=== PATIENT | male | born 1950 | race Caucasian/White ===

== ENCOUNTER → 2021-01-03 11:32 | Outpatient (BNVA) | payer BC, SELFPAY | PROVIDERS: PCP Internal Medicine; Visit Provider Urology | DX: R35.1 Nocturia (principal); N40.0 Benign prostatic hyperplasia without lower urinary tract symptoms | CPT/HCPCS: 81002 ==

== ENCOUNTER → 2021-01-31 11:05 | Outpatient (BNVA) | payer BC, SELFPAY | PROVIDERS: PCP Internal Medicine; Visit Provider Urology ==

== ENCOUNTER → 2021-05-07 09:48 | Outpatient (BNVA) | payer BC, SELFPAY | PROVIDERS: PCP Internal Medicine; Visit Provider Urology | DX: N40.0 Benign prostatic hyperplasia without lower urinary tract symptoms (principal); R35.1 Nocturia | CPT/HCPCS: 52000 ==

== ENCOUNTER 2021-07-08 08:47 | Day surgery (SDC) | payer BC, SELFPAY ==
[2021-07-02 14:43] VITALS: BMI 39.4
[2021-07-03 12:08] VITALS: BMI 39.4
--- NOTE | 2021-07-05 12:05 | P.CONAN_ITS ---
Documented by User: Rebecca Chaney NP 07/05/21 12:09 HPI - Anesthesia Eval Consult details Narrative: 71yo M for Laser Ablation Prostate w/Green Light Probable YOSI per stop-bang PMFSH Active Problems Active Problems: All Active Problems (Updated 07/03/21 @ 12:07 by Cayla Mcgregor, MARY) Nocturia (Acute) BPH (benign prostatic hyperplasia) (Acute) Past Medical History Medical History (Updated 07/03/21 @ 12:07 by Cayla Mcgregor, MARY) Anxiety and depression Arthritis BPH (benign prostatic hyperplasia) Currently works full-time Depression Nocturia Sleep concern SOB (shortness of breath) Teeth missing Type I diabetes mellitus Urgency-frequency syndrome Surgical History Surgical History (Updated 07/03/21 @ 11:36 by Cayla Mcgregor RN) Hx of colonoscopy Social History Social History (Updated 07/03/21 @ 12:12 by Cayla Mcgregor RN) Household Members Other:: mother 90 yrs old and her care-civilian 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 Are you a primary pharmacy customer care specialist to a significant other at home: Yes Do you presently have visiting nurse or other home services: Yes (mother's care-civilian technician) Alcohol intake: current Alcohol intake frequency: a few times a week Alcohol type: beer Patient Tobacco Use Status: Never used Tobacco Use of substances other than those prescribed or required for medical reasons: No Are you DNR?: No Advance Directives: No Advance Directives Information Provided: No Advance Directives on File: No Meds Allergies Allergy/AdvReac Type Severity Reaction Status Date / Time ibuprofen [IBUPROFEN] Allergy Intermediate kidney Verified 07/03/21 11:28 problems lisinopril [LISINOPRIL] Allergy Intermediate kidney Verified 07/03/21 11:28 problems Sulfa (Sulfonamide Allergy Unknown Unknown Verified 07/03/21 11:28 Antibiotics) Home Medications Medication Instructions Recorded Confirmed Last Taken Type atorvastatin 10 mg tablet 10 mg PO DAILY 01/03/21 07/03/21 Unknown History blood sugar diagnostic #10 ea 01/03/21 01/31/21 Unknown History buspirone 15 mg tablet 30 mg PO BID 01/03/21 07/03/21 Unknown History fluoxetine 40 mg capsule 120 mg PO DAILY 01/03/21 07/03/21 Unknown History glipizide 5 mg tablet, extended 10 mg PO DAILY 01/03/21 07/03/21 Unknown History release 24 hr ketoconazole 2 % topical cream appl TOPICAL DAILY 01/03/21 01/31/21 Unknown History losartan 100 1 tab PO DAILY 01/03/21 07/03/21 Unknown History mg-hydrochlorothiazide 25 mg tablet metformin 500 mg tablet,extended 2,000 mg PO DAILY@0730 01/03/21 07/03/21 Unknown History release 24 hr pen needle, diabetic 32 gauge x #50 ea 01/03/21 01/31/21 Unknown History spironolactone 25 mg tablet 25 mg PO DAILY 01/03/21 07/03/21 Unknown History alcohol swabs 0 pad TOPICAL 05/07/21 Unknown History insulin degludec 100 unit/mL (3 38 unit SUBCUT QAM 07/03/21 07/03/21 Unknown History mL) subcutaneous pen (Tresiba FlexTouch U-100 insulin) liraglutide 0.6 mg/0.1 mL (18 mg/3 1.8 mg SUBCUT DAILY 07/03/21 07/03/21 Unknown History mL) subcutaneous pen injector (Victoza 3-Can) Exam Exam Date and Time: July 05, 2021 1205 Height,Weight and Vital Signs: Height 5 ft 11 in Weight 128.367 kg Pertinent Lab Results Pertinent Lab Results: 06/2021 Na 134 (L) K 4.9 Cl 101 CO2 25 BUN 28 (H) Creat 1.41 (H) WBC 8 HGB 13.1 (L) HCT 40.2 (L) PLT 210 Narrative Narrative: EKG 06/2021 NSR @ 86 Assessment and Plan Assessment Anesthesia Assessment: Chart Reviewed Documented by User: Lucrecia Whitley MD 07/08/21 13:13 [facility] Past Medical History Medical History (Updated 07/03/21 @ 12:07 by Cayla Mcgregor RN) Anxiety and depression Arthritis BPH (benign prostatic hyperplasia) Currently works full-time Depression Nocturia Sleep concern SOB (shortness of breath) Teeth missing Type I diabetes mellitus Urgency-frequency syndrome Surgical History Surgical History (Updated 07/03/21 @ 11:36 by Cayla Mcgregor, MARY) Hx of colonoscopy Social History Social History (Updated 07/03/21 @ 12:12 by Cayla Mcgregor, RN) Household Members Other:: mother 90 yrs old and her care-civilian technician Are you a primary pharmacy customer care specialist to a significant other at home: Yes Do you presently have visiting nurse or other home services: Yes (mother's care-civilian technician) Alcohol intake: current Alcohol intake frequency: a few times a week Alcohol type: beer Patient Tobacco Use Status: Never used Tobacco Use of substances other than those prescribed or required for medical reasons: No Are you DNR?: No Advance Directives: No Advance Directives Information Provided: No Advance Directives on File: No Meds Allergies Allergy/AdvReac Type Severity Reaction Status Date / Time ibuprofen [IBUPROFEN] Allergy Intermediate kidney Verified 07/03/21 11:28 problems lisinopril [LISINOPRIL] Allergy Intermediate kidney Verified 07/03/21 11:28 problems Sulfa (Sulfonamide Allergy Unknown Unknown Verified 07/03/21 11:28 Antibiotics) Home Medications Medication Instructions Recorded Confirmed Last Taken Type atorvastatin 10 mg tablet 10 mg PO DAILY 01/03/21 07/03/21 Unknown History blood sugar diagnostic #10 ea 01/03/21 01/31/21 Unknown History buspirone 15 mg tablet 30 mg PO BID 01/03/21 07/03/21 Unknown History fluoxetine 40 mg capsule 120 mg PO DAILY 01/03/21 07/03/21 Unknown History glipizide 5 mg tablet, extended 10 mg PO DAILY 01/03/21 07/03/21 Unknown History release 24 hr ketoconazole 2 % topical cream appl TOPICAL DAILY 01/03/21 01/31/21 Unknown History losartan 100 1 tab PO DAILY 01/03/21 07/03/21 Unknown History mg-hydrochlorothiazide 25 mg tablet metformin 500 mg tablet,extended 2,000 mg PO DAILY@0730 01/03/21 07/03/21 Unknown History release 24 hr pen needle, diabetic 32 gauge x #50 ea 01/03/21 01/31/21 Unknown History spironolactone 25 mg tablet 25 mg PO DAILY 01/03/21 07/03/21 Unknown History alcohol swabs 0 pad TOPICAL 05/07/21 Unknown History insulin degludec 100 unit/mL (3 38 unit SUBCUT QAM 07/03/21 07/03/21 Unknown History mL) subcutaneous pen (Tresiba FlexTouch U-100 insulin) liraglutide 0.6 mg/0.1 mL (18 mg/3 1.8 mg SUBCUT DAILY 07/03/21 07/03/21 Unknown History mL) subcutaneous pen injector (Victoza 3-Can) Exam Airway Mallampati Class: III TM Dist: >3cm Loose/Missing/Broken Teeth: Yes, Upper and Lower
[2021-07-08 12:45] VITALS: BP 169/85; PULSE 85; RESP 16; TEMP 36.2; O2SAT 97
[2021-07-08] MEDS: Lactated Ringers 1,000 ML 100 ML IVCONT (13:03)
[2021-07-08] MEDS: levoFLOXacin/D5W 500 MG/100 ML PIGGYBACK 100 MG IV (13:06)
[2021-07-08 13:11] LABS: Glucose, Whole Blood 144 mg/dL (60-115)
--- NOTE | 2021-07-08 13:19 | MHC.SHP ---
Pre-Procedural Eval Section A Date of Service: 07/08/21 Section B Chief Complaint: prostatic hyperplasia Details of Present Illness: BPH here for GreenLight laser prostate Relevant Social History: Tobacco Use Present Medications: see Short Stay Collaborative assessment Medical History: No relevant PMH History of Previous Operations: No relevant previous surgery Allergies: Allergies Allergy/AdvReac Type Severity Reaction Status Date / Time ibuprofen [IBUPROFEN] Allergy Intermediate kidney Verified 07/03/21 11:28 problems lisinopril [LISINOPRIL] Allergy Intermediate kidney Verified 07/03/21 11:28 problems Sulfa (Sulfonamide Allergy Unknown Unknown Verified 07/03/21 11:28 Antibiotics) Review of Systems Sugical H&P ROS: Negative: Constitution, Cardiovascular, Respiratory, Neurological, Psychiatric, Hem-Onc, Allergic/Immunologic, Gastrointestinal, Genitourinary, Musculoskeletal, Integumentary, Endocrine and Eyes/Ears/Nose/Throat Exam Surgical H&P Exam: Normal: HEENT, Normal: Heart, Normal: Lungs, Normal: Extremities, Normal: Abdomen, Normal: Skin and Normal: Neurological Plan Diagnosis/Plan: Unchanged (GreenLight laser prostate) I have reviewed the history and physical and performed a pertinent physical examination on my patient. No changes have occurred unless specified.
--- NOTE | 2021-07-08 14:24 | W.PM.OPN ---
Operative Note Operative Note Date of Service: 07/08/21 Narrative: PreOperative Diagnosis: Bladder outlet obstruction Post Operative Diagnosis: Bladder outlet obstruction Procedure: GreenLight laser enucleation of the prostate Surgeon: Dr Aly Painter Anesthesia: General Indications for procedure: History of bladder outlet obstruction. Treated with alpha-raisa and other medications. Still with symptoms. On cystoscopy in office has trilobar hypertrophy.. Recommendation for prostate procedure with laser enucleation of prostate. It has been discussed. Focus was placed on development of retrograde examination which is a normal part of this procedure. Procedure: After informed consent was verified the patient was brought to the operating room and placed in a supine position. Anesthesia was administered per protocol. Patient was placed in modified dorsal lithotomy position and prepped and draped in a sterile fashion. Safety pause time-out was confirmed. Antibiotics have been given. Twenty-four Cymraes laser cystoscope was inserted per urethra. No abnormalities found the anterior posterior urethra. The bladder was filled on both ureteric orifices were seen in normal position away from our area of interest. Using a GreenLight laser settings of 80 w incisions were made at the 5 and 7 o'clock position. They were taken down and then laterally on each side. They were brought from the bladder neck down to the level of the veru. These defined the lateral aspects of the median lobe area. The median lobe was ablated and enucleated tissue removed. Once the median lobe area had been cleaned attention was directed to the lateral lobes. We started with the patient's left lateral lobe. Firstly the 05:00 o'clock groove was further developed. This was moved in the lateral position to undermine the tissue on the lateral side. Focus was then placed on the laser at the 1 o'clock position in developing a secondary groove down to the level of bladder fibers. The intervening tissue between these 2 grooves was removed with a combination of enucleation ablation working from the apex toward the bladder neck. A similar procedure was repeated on the patient's right-hand side. When this was completed debris and pieces of prostate removed from the bladder. Both ureteric orifices were reviewed again in shown to be patent in away from any areas of energy damage. The apical area was reviewed in any stray ooze was controlled. A 22 Cymraes 30 cc balloon Del Toro catheter was placed over stylet into the bladder. Clear efflux was obtained. 30 cc was placed in the balloon and gentle traction was placed. A snap was used to hold tension once the patient will be moved and transported. Once transportation its finish this novel be removed. A belladonna and opiate suppository was placed for postprocedure pain management. He tolerated procedure well was extubated in the operating and transferred in a stable condition to the recovery area. Total 88 kJ, 11:35 lasing time Pathology: Prostate tissue Drains: Del Toro catheter
[2021-07-08 14:27] VITALS: BP 146/77; PULSE 68; RESP 16; TEMP 36.1; O2SAT 98
[2021-07-08 14:32] VITALS: BP 147/76; PULSE 67; RESP 18; O2SAT 97
[2021-07-08 14:37] VITALS: BP 135/77; PULSE 70; RESP 16; O2SAT 98
[2021-07-08 14:42] VITALS: BP 159/91; PULSE 69; RESP 18; O2SAT 98
[2021-07-08 14:55] VITALS: BP 135/61; PULSE 70; RESP 18; TEMP 36.3; O2SAT 97
--- NOTE | 2021-07-08 15:09 | PC.NURSE ---
Pt's booked ride by [employer] has changed from 1530 to 1652 per [facility] personnel. PO fluids and snack provided for pt while he is awaiting for his ride.
[2021-07-08] MEDS: traMADoL HCL 50 MG TABLET PO (15:32)
[2021-07-08] MEDS: Acetaminophen 325 MG TABLET 650 MG PO (15:33)
--- NOTE | 2021-07-08 15:39 | PC.NURSE ---
Medicated with Tramadol and Tylenol for urethral aching and burning pain per pt's request Dr. Painter contacted on pt's behalf for home Rx Tramadol for pain control at home. Food tray ordered. Awaiting for his ride.
--- NOTE | 2021-07-08 16:06 | PC.NURSE ---
Pt ambulated to BR with steady gait, urgency for BM. Unable to have BM, +flatus. Pt instructed to avoid straining with stools Assited back to recliner, food tray provided.
== END 2021-07-08 16:53 | disposition home or self-care (01) ==
PROVIDERS: PCP Internal Medicine; Visit Provider Urology
PROC: (CPT 52648; principal; 2021-07-08 13:00)
DX: N40.1 Benign prostatic hyperplasia with lower urinary tract symptoms (principal); N13.8 Other obstructive and reflux uropathy; R35.1 Nocturia; F32.9 Major depressive disorder, single episode, unspecified; E10.9 Type 1 diabetes mellitus without complications; Z79.4 Long term (current) use of insulin; Z79.899 Other long term (current) drug therapy; Z88.2 Allergy status to sulfonamides; Z88.8 Allergy status to other drugs, medicaments and biological substances
CPT/HCPCS: 52649; 82947; 88305; J1100; J1956; J2405; J3010

== ENCOUNTER → 2021-07-11 10:32 | Outpatient (BNVA) | payer BC, SELFPAY | PROVIDERS: PCP Internal Medicine; Visit Provider Urology | DX: N40.0 Benign prostatic hyperplasia without lower urinary tract symptoms (principal) | CPT/HCPCS: 51700; 51798 ==

== ENCOUNTER → 2021-08-23 09:04 | Outpatient (BNVA) | payer BC, SELFPAY | PROVIDERS: PCP Internal Medicine; Visit Provider Urology | DX: N40.1 Benign prostatic hyperplasia with lower urinary tract symptoms (principal); R39.15 Urgency of urination; R35.1 Nocturia | CPT/HCPCS: 51798 ==

== ENCOUNTER → 2021-09-26 10:30 | Outpatient (BNVA) | payer BC, SELFPAY | PROVIDERS: PCP Internal Medicine; Visit Provider Urology | DX: R39.15 Urgency of urination (principal); R35.1 Nocturia; N40.0 Benign prostatic hyperplasia without lower urinary tract symptoms | CPT/HCPCS: 52000 ==

== ENCOUNTER → 2021-11-14 09:43 | Outpatient (BNVA) | payer BC, SELFPAY | PROVIDERS: PCP Internal Medicine; Visit Provider Urology ==

== ENCOUNTER → 2022-01-23 08:43 | Outpatient (BNVA) | payer BC, SELFPAY | PROVIDERS: PCP Internal Medicine; Visit Provider Urology | DX: Z13.89 Encounter for screening for other disorder (principal) ==

== ENCOUNTER → 2022-07-29 10:53 | Outpatient (BNVA) | payer BC, SELFPAY | PROVIDERS: PCP Internal Medicine; Visit Provider Urology | DX: N40.1 Benign prostatic hyperplasia with lower urinary tract symptoms (principal); R35.1 Nocturia; R39.15 Urgency of urination | CPT/HCPCS: 51798 ==

== ENCOUNTER → 2023-01-29 11:41 | Outpatient (BNVA) | payer BC, SELFPAY | PROVIDERS: PCP Internal Medicine; Visit Provider Urology | DX: N40.1 Benign prostatic hyperplasia with lower urinary tract symptoms (principal); N13.8 Other obstructive and reflux uropathy; N32.81 Overactive bladder; E11.9 Type 2 diabetes mellitus without complications; Z79.899 Other long term (current) drug therapy | CPT/HCPCS: 51798 ==

== ENCOUNTER 2023-08-06 10:15 | Outpatient (AMB) | payer BC, SELFPAY ==
--- NOTE | 2023-08-06 10:21 | A.OFFVIS_ITS ---
Intake Intake Visit Reasons: 6 month pvr Intake Note: Patient is present for PVR Follow Up (Urgency, Nocturia, BPH) Urology Med: Myrbetriq, Toviaz Blood Thinner: none PVR: 68ml's Control Panel Operator Required: No Accompanied by: Self / Same As Patient Allergies ibuprofen [IBUPROFEN] Allergy (Intermediate, Verified 08/06/23 10:26) kidney problems lisinopril [LISINOPRIL] Allergy (Intermediate, Verified 08/06/23 10:26) kidney problems Sulfa (Sulfonamide Antibiotics) Allergy (Unknown, Verified 08/06/23 10:26) Unknown Medication List - Last Reconciled 08/06/23 by Aly Painter MD alcohol swabs 0 pad topical atorvastatin 10 mg PO DAILY blood sugar diagnostic As directed buspirone 30 mg PO BID buspirone 30 mg PO BID fesoterodine ER (Toviaz) 4 mg PO DAILY 90 days fluoxetine 120 mg PO DAILY glipizide ER 10 mg PO DAILY insulin degludec (Tresiba FlexTouch U-100 insulin) 38 units subcut QAM ketoconazole 2% appl topical DAILY liraglutide (Victoza 3-Can) 1.8 mg subcut DAILY losartan-hydrochlorothiazide 100-25 mg 1 tab PO DAILY metformin ER 2,000 mg PO DAILY@0730 mirabegron ER 50 mg PO DAILY 90 days pen needle, diabetic As directed spironolactone 25 mg PO DAILY tramadol 50 mg PO Q6H PRN HPI HPI Comments History of Present Illness Details Steven is a pleasant male. He is a patient of Dr. Mcdowell. He is seen for the following urologic conditions - lower urinary tract symptoms - overactive bladder - bladder instabili ty PVR 53 cc Has been on combination Myrbetriq and Toviaz Refill provided Tells me HbA1c 7.9 Failed Munjaro Lower Urinary Tract Symptoms: Current visit is for further evaluation of, lower urinary tract symptoms, predominate irritative symptoms. Current treatment includes fluid restriction, combination Myrbetriq with Toviaz Prostate procedures - 06/29 GreenLight laser prostate Prior treatments include medication, flomax/tamsulosin, not tolerated due to side effects Prostate Symptom Score Severe (20+), Bother 3. Symptoms include nocturia (>2), frequency, urgency, weak stream, and are progressing. 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 Are you a primary healthcare prof to a significant other at home: Yes Do you presently have visiting nurse or other home services: Yes (mother's care-sample body builder) Alcohol intake: current Alcohol intake frequency: a few times a week Alcohol type: beer Patient Tobacco Use Status: Never used Tobacco Review of Systems Const Denies chills and Denies fever(s) Card Reports no additional complaints and Denies syncope Resp Denies cough GI Denies abdominal pain and Denies heartburn Reports as per HPI and Denies change in libido Neuro Denies syncope Psych Denies change in libido Endo Denies change in libido Physical Exam Const General: cooperative, healthy appearing, comfortable and no acute distress Orientation/consciousness: patient oriented x3 HEENT Face and sinus: Yes normal facial exam Mouth: moist mucous membranes Neck Neck: Yes normal visual inspection, Yes full ROM and Yes trachea midline Chest Chest palpation & inspection: normal inspection of the chest Resp Effort & Inspection: normal respiratory effort, able to speak in complete sentences and no respiratory distress GI Inspection: Yes normal to inspection Back/Spine/Pelvis Cervical Spine: normal cervical lordosis Thoracic/Lumbar Spine: thoracic and lumbar spine normal to inspection Skin General skin exam: no rashes or lesions noted Neuro General: patient oriented x3, gait normal, tone normal and moves all extremities Extrem General: Yes normal to inspection and Yes capillary refill normal Office Procedures Post Void Residual Post Residual Void Post Void Residual (PVR): 68 [id number] Void Residual by ultrasound Results AMB Urinalysis, Automated UA Leukoctes 0 Chip/uL Last Edit by Franc Grant on 08/06/23 10:38 UA Nitrite Last Edit by Franc Grant on 08/06/23 10:38 UA Urobilinogen 0.2 mg/dL Last Edit by Justinoyce Rudy on 08/06/23 10:38 UA Protein 0 mg/dL Last Edit by Franc Grant on 08/06/23 10:38 UA pH 6.0 Last Edit by Franc Grant on 08/06/23 10:38 UA Blood 0 Blaine/uL Last Edit by Justinoyce Rudy on 08/06/23 10:38 UA Specific [place] 1.015 Last Edit by Justinoycalexandrea Grant on 08/06/23 10:38 UA Ketone Last Edit by Franc Grant on 08/06/23 10:38 UA Bilirubin 0 mg/dL Last Edit by Franc Grant on 08/06/23 10:38 UA Glucose 0 mg/dL Last Edit by Franc Grant on 08/06/23 10:38 Results Reviewed Results Reviewed: Laboratory Last Values Urine pH (Auto) 6.0 08/06/23 10:27 Specific [place] (Auto) 1.015 08/06/23 10:27 Urine Protein (Auto) 0 mg/dL 08/06/23 10:27 Glucose (UA)(Auto) 0 mg/dL 08/06/23 10:27 Urine Blood (Auto) 0 Blaine/uL 08/06/23 10:27 Urine Bilirubin (Auto) 0 mg/dL 08/06/23 10:27 Urine Urobilinogen (Auto) 0.2 mg/dL 08/06/23 10:27 Leukocyte Esterase (Auto) 0 Chip/uL 08/06/23 10:27 Assessment & Plan Assessment & Plan (1) BPH (benign prostatic hyperplasia): Code(s): N40.0 - Benign prostatic hyperplasia without lower urinary tract symptoms Qualifiers: Lower urinary tract symptom presence: symptoms present Lower urinary tract symptom detail: urinary frequency Qualified Code(s): N40.1 - Benign prostatic hyperplasia with lower urinary tract symptoms; R35.0 - Frequency of micturition (2) Urinary urgency: Code(s): R39.15 - Urgency of urination Plan Six month follow-up tele Orders: Orders AMB Post Void Residual by ultrasound Today N40.0 - Benign prostatic hyperplasia without lower urinary tract symptoms AMB Urinalysis Automated Today Z13.9 - Encounter for screening, unspecified Patient Instructions: Imaging studies, laboratory and physical exam results were discussed and reviewed in detail. No major barriers to patient understanding were identified. An opportunity to ask questions regarding the treatment plan was provided. All questions were answered. The patient expressed understanding and agreement with the above treatment plan. The patient is aware they should contact our office by phone for worsening of their current condition or the appearance of new urologic symptoms. Compliance is encouraged with any medications and followup testing that is ordered. It is a privilege to participate in the urologic care of your patient. If you have any questions or concerns regarding treatment for the above conditions, or other urologic issues, please do not hesitate to contact me. The office telephone contact is [phone]. This note is constructed using voice recognition software. While every effort has been made to ensure accuracy survey interviewer errors may have been included. Yours sincerely, Dr Aly Painter MD, [facility] - Urology Providers of Expert, Compassionate Care for the Genitourinary System Coding Level of Care Code Est Pt Level 3 (97546) Diagnoses Benign prostatic hyperplasia with urinary frequency N40.1; R35.0 Lower urinary tract symptom presence: symptoms present Lower urinary tract symptom detail: urinary frequency Urinary urgency R39.15 CPT Codes Post Residual Void - PVR CPT Code: 15542-[id number] Void Residual by ultrasound ([id number])
== END 2023-08-06 11:00 | disposition home or self-care (01) ==
PROVIDERS: PCP Internal Medicine; Visit Provider Urology
DX: N40.1 Benign prostatic hyperplasia with lower urinary tract symptoms (principal); R35.0 Frequency of micturition; R39.15 Urgency of urination; Z13.9 Encounter for screening, unspecified
CPT/HCPCS: 99213

== ENCOUNTER 2023-08-06 10:15 | Outpatient (REF) | payer BC, SELFPAY ==
[2023-08-06 13:36] LABS: Prostate Specific Antigen 2.62 ng/mL (<0.05-4.0)
== END 2023-08-06 10:16 | disposition home or self-care (01) ==
LOC: HO.LAB 10:15
PROVIDERS: PCP Internal Medicine; Visit Provider Urology
DX: Z12.5 Encounter for screening for malignant neoplasm of prostate (principal); N40.0 Benign prostatic hyperplasia without lower urinary tract symptoms; R35.0 Frequency of micturition; R39.15 Urgency of urination
CPT/HCPCS: 36415; 51798; 81003; 84153

== ENCOUNTER 2024-04-01 12:31 | Outpatient (REF) | payer BC, SELFPAY ==
[2024-04-01 13:58] LABS: Prostate Specific Antigen 3.13 ng/mL (<0.05-4.0)
== END 2024-04-01 12:32 | disposition home or self-care (01) ==
LOC: HO.10HDL 12:31
PROVIDERS: Visit Provider Urology
DX: Z12.5 Encounter for screening for malignant neoplasm of prostate (principal); N40.1 Benign prostatic hyperplasia with lower urinary tract symptoms; R35.0 Frequency of micturition
CPT/HCPCS: 36415; 84153

== ENCOUNTER 2024-04-15 15:29 | Outpatient (AMB) | payer BC, SELFPAY ==
--- NOTE | 2024-04-15 15:58 | A.OFFVIS_ITS ---
Intake Visit Reasons: PSA/PVR(set) Intake Note: Patient is Present for PVR/ Urology Med: Toviaz,Myrbetriq Antibiotic Allergy: Sulfa Blood Thinner: None Last PVR: 68ml Todays PVR:15 Quantitative Analyst Required: No Allergies ibuprofen [IBUPROFEN] Allergy (Intermediate, Verified 04/15/24 16:00) kidney problems lisinopril [LISINOPRIL] Allergy (Intermediate, Verified 04/15/24 16:00) kidney problems Sulfa (Sulfonamide Antibiotics) Allergy (Unknown, Verified 04/15/24 16:00) Unknown Medication List - Last Reconciled 04/15/24 by Aly Painter MD alcohol swabs 0 pad topical atorvastatin 10 mg PO DAILY blood sugar diagnostic As directed buspirone 30 mg PO BID buspirone 30 mg PO BID fesoterodine ER (Toviaz) 4 mg PO DAILY 90 days fluoxetine 120 mg PO DAILY glipizide ER 10 mg PO DAILY insulin degludec (Tresiba FlexTouch U-100 insulin) 38 units subcut QAM ketoconazole 2% appl topical DAILY liraglutide (Victoza 3-Can) 1.8 mg subcut DAILY losartan-hydrochlorothiazide 100-25 mg 1 tab PO DAILY metformin ER 2,000 mg PO DAILY@0730 mirabegron ER 50 mg PO DAILY 90 days pen needle, diabetic As directed spironolactone 25 mg PO DAILY tramadol 50 mg PO Q6H PRN HPI Comments Details: Steven is a pleasant male. He is a patient of Dr. Mcdowell. He is seen for the following urologic conditions - lower urinary tract symptoms - overactive bladder - bladder instability PVR maintained under 100 cc Has been on combination Myrbetriq and Toviaz Refill provided Tells me HbA1c 7.9 Failed Munjaro Lower Urinary Tract Symptoms: Current visit is for further evaluation of, lower urinary tract symptoms, predominate irritative symptoms. Current treatment includes fluid restriction, combination Myrbetriq with Toviaz Prostate procedures - 06/29 GreenLight laser prostate Prior treatments include medication, flomax/tamsulosin, not tolerated due to side effects Prostate Symptom Score Severe (20+), Bother 3. Symptoms include nocturia (>2), frequency, urgency, weak stream, and are progressing. PSA 2005 0.8, 2012 1.3, 01/23 1.9, 01/25 2.1, 04/01 3.1 Associated conditions CAD No CVA No diabetes Yes psychiatric diagnosis Yes [facility] Medical History Currently works full-time Anxiety and depression Arthritis Sleep concern SOB (shortness of breath) Teeth missing Depression Type I diabetes mellitus Urgency-frequency syndrome BPH (benign prostatic hyperplasia) Nocturia Surgical History Hx of colonoscopy Social History Household Members Other:: mother 90 yrs old and her care-textile machine operator Are you a primary healthcare social worker to a significant other at home: Yes Do you presently have visiting nurse or other home services: Yes (mother's care-textile machine operator) Alcohol intake: current Alcohol intake frequency: a few times a week Alcohol type: beer Patient Tobacco Use Status: Never used Tobacco Review of Systems Const Denies chills and Denies fever(s) Card Reports no additional complaints and Denies syncope Resp Denies cough GI Denies abdominal pain and Denies heartburn Reports as per HPI and Denies change in libido Neuro Denies syncope Psych Denies change in libido Endo Denies change in libido Physical Exam Const General: cooperative, healthy appearing, comfortable and no acute distress Orientation/consciousness: patient oriented x3 HEENT Face and sinus: Yes normal facial exam Mouth: moist mucous membranes Neck Neck: Yes normal visual inspection, Yes full ROM and Yes trachea midline Chest Chest palpation & inspection: normal inspection of the chest Resp Effort & Inspection: normal respiratory effort, able to speak in complete sentences and no respiratory distress GI Inspection: Yes normal to inspection Back/Spine/Pelvis Cervical Spine: normal cervical lordosis Thoracic/Lumbar Spine: thoracic and lumbar spine normal to inspection Skin General skin exam: no rashes or lesions noted Neuro General: patient oriented x3, gait normal, tone normal and moves all extremities Extrem General: Yes normal to inspection and Yes capillary refill normal Office Procedures Post Void Residual Post Residual Void Post Void Residual (PVR): 15 [id number] Void Residual by ultrasound Assessment & Plan Assessment & Plan (1) Low libido: Code(s): R68.82 - Decreased libido Category: Medical Plan Six-month flow Orders: Orders AMB Post Void Residual by ultrasound 04/15/24 N40.1 - Benign prostatic hyperplasia with lower urinary tract symptoms, R35.0 - Frequency of micturition Testosterone, Total 6 Months R68.82 - Decreased libido Patient Instructions: Imaging studies, laboratory and physical exam results were discussed and reviewed in detail. No major barriers to patient understanding were identified. An opportunity to ask questions regarding the treatment plan was provided. All questions were answered. The patient expressed understanding and agreement with the above treatment plan. The patient is aware they should contact our office by phone for worsening of their current condition or the appearance of new urologic symptoms. Compliance is encouraged with any medications and followup testing that is ordered. It is a privilege to participate in the urologic care of your patient. If you have any questions or concerns regarding treatment for the above conditions, or other urologic issues, please do not hesitate to contact me. The office telephone contact is [phone]. This note is constructed using voice recognition software. While every effort has been made to ensure accuracy blender laborer errors may have been included. Yours sincerely, Dr Aly Painter MD, [facility] - Urology Providers of Expert, Compassionate Care for the Genitourinary System Coding Level of Care Code Est Pt Level 3 (19636) Diagnoses Low libido R68.82 CPT Codes Post Residual Void - PVR CPT Code: 07618-Opve Void Residual by ultrasound ([id number])
== END 2024-04-15 16:18 | disposition home or self-care (01) ==
PROVIDERS: PCP Internal Medicine; Visit Provider Urology
DX: R68.82 Decreased libido (principal)
CPT/HCPCS: 99213

== ENCOUNTER → 2024-04-15 15:29 | Outpatient (BNVA) | payer BC, SELFPAY | PROVIDERS: PCP Internal Medicine; Visit Provider Urology | DX: R68.82 Decreased libido (principal); N40.1 Benign prostatic hyperplasia with lower urinary tract symptoms; R35.0 Frequency of micturition; Z79.899 Other long term (current) drug therapy | CPT/HCPCS: 51798 ==

== ENCOUNTER 2024-10-14 08:51 | Outpatient (REF) | payer BC, SELFPAY ==
[2024-10-20 13:18] LABS: Testosterone, Total 127 ng/dL (250-1100)
== END 2024-10-14 08:52 | disposition home or self-care (01) ==
LOC: HO.LAB 08:51
PROVIDERS: PCP Internal Medicine; Visit Provider Urology
DX: R68.82 Decreased libido (principal)
CPT/HCPCS: 36415; 84403

== ENCOUNTER 2024-10-28 14:36 | Outpatient (AMB) | payer BC, SELFPAY ==
--- NOTE | 2024-10-28 14:37 | A.OFFVIS_ITS ---
Intake Visit Reasons: 6m/Labs/PVR Intake Note: Patient is present for 6M/LABS/PVR Urology Medication:FESOTERODINE,MIRABEGRON Antibiotic Allergy:SULFA Blood Thinner:NONE Last PVR:68ML'S Todays PVR:46ML'S Sediment Remediation Consultant Required: No Allergies ibuprofen [IBUPROFEN] Allergy (Intermediate, Verified 10/28/24 14:38) kidney problems lisinopril [LISINOPRIL] Allergy (Intermediate, Verified 10/28/24 14:38) kidney problems Sulfa (Sulfonamide Antibiotics) Allergy (Unknown, Verified 10/28/24 14:38) Unknown HPI Comments Details: Steven is a pleasant male. He is a patient of Dr. Mcdowell. He is seen for the following urologic conditions - lower urinary tract symptoms - overactive bladder - bladder instability - hypogonadism Hypogonadism on last testosterone lab Background diabetes Will initiate hormone replacement Has been on combination Myrbetriq and Toviaz Refill provided Tells me HbA1c 7.9 Failed Munjaro Hypogonadism Testosterone - 11/01 127 Lower Urinary Tract Symptoms: Current visit is for further evaluation of, lower urinary tract symptoms, predominate irritative symptoms. Current treatment includes fluid restriction, combination Myrbetriq with Toviaz Prostate procedures - 06/29 GreenLight laser prostate Prior treatments include medication, flomax/tamsulosin, not tolerated due to side effects Prostate Symptom Score Severe (20+), Bother 3. Symptoms include nocturia (>2), frequency, urgency, weak stream, and are progressing. PSA 2005 0.8, 2012 1.3, 01/23 1.9, 01/25 2.1, 04/01 3.1 Associated conditions CAD No CVA No diabetes Yes psychiatric diagnosis Yes PFSH Medical History Currently works full-time Anxiety and depression Arthritis Sleep concern SOB (shortness of breath) Teeth missing Depression Type I diabetes mellitus Urgency-frequency syndrome BPH (benign prostatic hyperplasia) Nocturia Surgical History Hx of colonoscopy Social History Household Members Other:: mother 90 yrs old and her care-desk pen set assembler Are you a primary career technical education teacher to a significant other at home: Yes Do you presently have visiting nurse or other home services: Yes (mother's care-desk pen set assembler) Alcohol intake: current Alcohol intake frequency: a few times a week Alcohol type: beer Patient Tobacco Use Status: Never used Tobacco Review of Systems Const Denies chills and Denies fever(s) Card Reports no additional complaints and Denies syncope Resp Denies cough GI Denies abdominal pain and Denies heartburn Reports as per HPI and Denies change in libido Neuro Denies syncope Psych Denies change in libido Endo Denies change in libido Physical Exam Const General: cooperative, healthy appearing, comfortable and no acute distress Orientation/consciousness: patient oriented x3 HEENT Face and sinus: Yes normal facial exam Mouth: moist mucous membranes Neck Neck: Yes normal visual inspection, Yes full ROM and Yes trachea midline Chest Chest palpation & inspection: normal inspection of the chest Resp Effort & Inspection: normal respiratory effort, able to speak in complete sentences and no respiratory distress GI Inspection: Yes normal to inspection Back/Spine/Pelvis Cervical Spine: normal cervical lordosis Thoracic/Lumbar Spine: thoracic and lumbar spine normal to inspection Skin General skin exam: no rashes or lesions noted Neuro General: patient oriented x3, gait normal, tone normal and moves all extremities Extrem General: Yes normal to inspection and Yes capillary refill normal Office Procedures Post Void Residual Post Residual Void Post Void Residual (PVR): 46 [id number] Void Residual by ultrasound Results AMB Urinalysis, Automated UA Leukoctes 0 Chip/uL Last Edit by SHARON Gar on 10/28/24 14:47 UA Nitrite Negative Last Edit by SHARON Gar on 10/28/24 14:47 UA Urobilinogen 0.2 mg/dL Last Edit by SHARON Gar on 10/28/24 14:4 7 UA Protein 15 mg/dL Last Edit by SHARON Gar on 10/28/24 14:47 UA pH 6.5 Last Edit by SHARON Gar on 10/28/24 14:47 UA Blood 0 Blaine/uL Last Edit by SHARON Gar on 10/28/24 14:47 UA Specific [place] 1.015 Last Edit by SHARON Gar on 10/28/24 14: 47 UA Ketone Negative Last Edit by SHARON Gar on 10/28/24 14:47 UA Bilirubin 0 mg/dL Last Edit by SHARON Gar on 10/28/24 14:47 UA Glucose 0 mg/dL Last Edit by SHARON Gar on 10/28/24 14:47 Results Reviewed Results Reviewed: Laboratory Last Values Urine pH (Auto) 6.5 10/28/24 14:46 Specific [place] (Auto) 1.015 10/28/24 14:46 Urine Protein (Auto) 15 mg/dL 10/28/24 14:46 Glucose (UA)(Auto) 0 mg/dL 10/28/24 14:46 Urine Ketones (Auto) Negative 10/28/24 14:46 Urine Blood (Auto) 0 Blaine/uL 10/28/24 14:46 Urine Nitrite (Auto) Negative 10/28/24 14:46 Urine Bilirubin (Auto) 0 mg/dL 10/28/24 14:46 Urine Urobilinogen (Auto) 0.2 mg/dL 10/28/24 14:46 Leukocyte Esterase (Auto) 0 Chip/uL 10/28/24 14:46 Assessment & Plan Assessment & Plan (1) Hypogonadism in male: Code(s): E29.1 - Testicular hypofunction Category: Medical (2) Urinary urgency: Code(s): R39.15 - Urgency of urination Category: Medical Plan Three-month follow-up lab work Orders: Orders AMB Urinalysis Automated Today Z13.9 - Encounter for screening, unspecified Testosterone, Total 3 Months E29.1 - Testicular hypofunction Medications: New testosterone Apply to shoulder and rub in until dry 1 packet transdermal DAILY 150 grams 5RF 30 days E29.1 - Testicular hypofunction Patient Instructions: Imaging studies, laboratory and physical exam results were discussed and reviewed in detail. No major barriers to patient understanding were identified. An opportunity to ask questions regarding the treatment plan was provided. All questions were answered. The patient expressed understanding and agreement with the above treatment plan. The patient is aware they should contact our office by phone for worsening of their current condition or the appearance of new urologic symptoms. Compliance is encouraged with any medications and followup testing that is ordered. It is a privilege to participate in the urologic care of your patient. If you have any questions or concerns regarding treatment for the above conditions, or other urologic issues, please do not hesitate to contact me. The office telephone contact is [phone]. This note is constructed using voice recognition software. While every effort has been made to ensure accuracy site worker errors may have been included. Yours sincerely, Dr Aly Painter MD, [facility] - Urology Providers of Expert, Compassionate Care for the Genitourinary System Coding Level of Care Code Est Pt Level 4 (07962) Diagnoses Hypogonadism in male E29.1 Urinary urgency R39.15 CPT Codes Post Residual Void - PVR CPT Code: 94467-Bcyi Void Residual by ultrasound ([id number])
== END 2024-10-28 15:19 | disposition home or self-care (01) ==
PROVIDERS: PCP Internal Medicine; Visit Provider Urology
DX: E29.1 Testicular hypofunction (principal); R39.15 Urgency of urination; Z13.9 Encounter for screening, unspecified
CPT/HCPCS: 99214

== ENCOUNTER → 2024-10-28 14:36 | Outpatient (BNVA) | payer BC, SELFPAY | PROVIDERS: PCP Internal Medicine; Visit Provider Urology | DX: N32.81 Overactive bladder (principal); R39.15 Urgency of urination; E29.1 Testicular hypofunction; N40.0 Benign prostatic hyperplasia without lower urinary tract symptoms | CPT/HCPCS: 51798; 81003 ==

== ENCOUNTER 2025-01-23 10:29 | Outpatient (REF) | payer BC, SELFPAY ==
[2025-01-30 12:03] LABS: Testosterone, Total 343 ng/dL (250-1100)
== END 2025-01-23 10:30 | disposition home or self-care (01) ==
LOC: HO.10HDL 10:29
PROVIDERS: Visit Provider Urology
DX: E29.1 Testicular hypofunction (principal)
CPT/HCPCS: 36415; 84403

== ENCOUNTER 2025-02-01 14:43 | Outpatient (AMB) | payer BC, SELFPAY ==
--- NOTE | 2025-02-01 14:46 | A.OFFVIS_ITS ---
Intake Visit Reasons: 3m/labs(TESTO PENDING) Intake Note: Patient is present for 3M/LABS Urology Medication:FESOTERODINE,MIRABEGRON,TESTOSTERONE Antibiotic Allergy:SULFA Blood Thinner:NONE Greenskeeper Laborer Required: No Allergies ibuprofen [IBUPROFEN] Allergy (Intermediate, Verified 02/01/25 14:49) kidney problems lisinopril [LISINOPRIL] Allergy (Intermediate, Verified 02/01/25 14:49) kidney problems Sulfa (Sulfonamide Antibiotics) Allergy (Unknown, Verified 02/01/25 14:49) Unknown HPI Comments Details: Steven is a pleasant male. He is a patient of Dr. Mcdowell. He is see n for the following urologic conditions - lower urinary tract symptoms - overactive bladder - bladder instability - hypogonadism Hypogonadism on last testosterone lab Background diabetes Will initiate hormone replacement Has been on combination Myrbetriq and Toviaz Refill provided Tells me HbA1c 7.9 Failed Munjaro Hypogonadism Testosterone - 11/01 127, 01/03 323 Lower Urinary Tract Symptoms: Current visit is for further evaluation of, lower urinary tract symptoms, predominate irritative symptoms. Current treatment includes fluid restriction, combination Myrbetriq with Toviaz Prostate procedures - 06/29 GreenLight laser prostate Prior treatments include medication, flomax/tamsulosin, not tolerated due to side effects Prostate Symptom Score Severe (20+), Bother 3. Symptoms include nocturia (>2), frequency, urgency, weak stream, and are progressing. PSA 2005 0.8, 2012 1.3, 01/23 1.9, 01/25 2.1, 04/01 3.1 Associated conditions CAD No CVA No diabetes Yes psychiatric diagnosis Yes PFSH Medical History Currently works full-time Anxiety and depression Arthritis Sleep concern SOB (shortness of breath) Teeth missing Depression Type I diabetes mellitus Urgency-frequency syndrome BPH (benign prostatic hyperplasia) Nocturia Surgical History Hx of colonoscopy Social History Household Members Other:: mother 90 yrs old and her care-legislative correspondent Are you a primary zoo caretaker to a significant other at home: Yes Do you presently have visiting nurse or other home services: Yes (mother's care-legislative correspondent) Alcohol intake: current Alcohol intake frequency: a few times a week Alcohol type: beer Patient Tobacco Use Status: Never used Tobacco Results AMB Urinalysis, Automated UA Leukoctes 0 Chip/uL Last Edit by SHARON Gar on 02/01/25 15:35 UA Nitrite Negative Last Edit by SHARON Gar on 02/01/25 15:35 UA Urobilinogen 3.5 mg/dL Last Edit by SHARON Gar on 02/01/25 15:3 5 UA Protein 15 mg/dL Last Edit by Francis Sahni CCM on 02/01/25 15:35 UA pH 5.5 Last Edit by Francis Sahni [facility] on 02/01/25 15:35 UA Blood 0 Blaine/uL Last Edit by Francis Sahni CCM on 02/01/25 15:35 UA Specific [place] 1.025 Last Edit by SHARON Gar on 02/01/25 15: 35 UA Ketone Negative Last Edit by Francis Sahni CCM on 02/01/25 15:35 UA Bilirubin 0 mg/dL Last Edit by Francis Sahni [facility] on 02/01/25 15:35 UA Glucose 0 mg/dL Last Edit by Francis Sahni [facility] on 02/01/25 15:35 Results Reviewed Results Reviewed: Laboratory Last Values Urine pH (Auto) 5.5 02/01/25 15:35 Specific [place] (Auto) 1.025 02/01/25 15:35 Urine Protein (Auto) 15 mg/dL 02/01/25 15:35 Glucose (UA)(Auto) 0 mg/dL 02/01/25 15:35 Urine Ketones (Auto) Negative 02/01/25 15:35 Urine Blood (Auto) 0 Blaine/uL 02/01/25 15:35 Urine Nitrite (Auto) Negative 02/01/25 15:35 Urine Bilirubin (Auto) 0 mg/dL 02/01/25 15:35 Urine Urobilinogen (Auto) 3.5 mg/dL 02/01/25 15:35 Leukocyte Esterase (Auto) 0 Chip/uL 02/01/25 15:35 Assessment & Plan Assessment & Plan Orders: Orders AMB Urinalysis Automated Today Z13.9 - Encounter for screening, unspecified Coding
--- OUTSIDE RECORDS SUMMARY | 2025-02-01 17:37 | XMS_ITS ---
[facility] ronnie Kerby Address [address] [place] [address] Care Team Providers Care Colon Therapist Name Role Phone Shana Chacon MD Primary Care Provider Sonido Nielson Unavailable [phone] Allergies Allergen (clinical drug ingredient) Drug/Non Drug Allergy documented on EMR Reaction Allergy Type Onset Date Status ibuprofen Advil kidney issues Drug Allergy Act kelin ibuprofen Ibuprofen kidney issues Drug Allergy Act kelin lisinopril Lisinopril kidney issues Drug Allergy A ctive Motrin kidney issues Drug Allergy Act kelin REASON FOR VISIT At Risk Footcare, Ingrown nail(s), Toe Irritation Medications Medication SIG (Take, Route, Frequency, Duration) Notes Start Date End Date Status Basaglar KwikPen 100 UNIT/ML Subcutaneous Not-Taking Penicillin Not-Takin g Januvia 100 MG 1 tablet Orally Once a day Not-Taking Victoza 18 MG/3ML as directed Subcutaneous Not-Taking hydroCHLOROthiazide Not-Taking Tresiba FlexTouch 100 UNIT/ML 50 units Subcutaneous Not-Taking amLODIPine Besylate 10 MG 1 tablet Orall y Once a day Not-Taking Victoza 1.5 units No t-Taking Victoza Not-Taking Tamsulosin HCl 0.4 MG 1 capsule Orally Once a day for 30 day(s) Not-Taking Tresiba 40 units Not -Taking Mounjaro Not-Taking Ketoconazole 2 % 1 application to affected area Externally Once a day for 30 days 04/14/2019 Not-Taking Alfuzosin HCl Not-Ta jessie oxyBUTYnin Not-Takin g Extra Depth Orthopedic Shoes (1 Pair) with Customized Heat Molded Multidensity Innersoles (3 Pair) as directed Dx: NIDDM/Polyneuropath y (E11.42), Hammertoe Foot Deformity (M20.41,M20.42), Preulcerative Skin Lesion(s) (L85.1 09/17/2023 Active Victoza 1.8 units Active Vitamin D3 Active Tylenol Active Toviaz Active Myrbetriq Active Multivitamin Adult A ctive Tresiba 100 UNIT/ML as directed 80 units a day Active Spironolactone Activ e PROzac 40 MG 1 capsule Orally Once a day Active metFORMIN HCl 1000 MG 1 tablet with meal s Orally Twice a day Active Losartan Potassium-HCTZ 100-25 MG 2 tablets Orally Once a day Active Gold [place] Ultimate 3-30 % as directed Externally Active glipiZIDE ER 5 MG 1 tablet Orally Once a day Active Fluoxetine Active Fesoterodine Fumarate 4mg Active busPIRone HCl Active Atorvastatin Calcium 10 MG 1 tablet Orally Once a day Active Aspirin EC prn Active Social History Tobacco Use: Social History Observation Description Date Details (start date - stop date) Never Smoker NA - NA Tobacco use other than smoking: Question Answer Notes Are you an other tobacco user? No Tobacco Control (Standard) Question Answer Notes Tobacco use: Nonsmoker Additional Findings: Tobacco non-user Current no nsmoker Vital Signs Height 5ft 11in in 09/16/2024 Weight 291 lbs 09/16/2024 BMI 40.58 kg/m2 09/16/2024 Procedures Procedure Date Ordered Date Performed Result Body Sit e 70165-ZZTPXXT NAIL, 6 OR MORE 09/16/2024 N/A 52018-Qavurgfl Plate 09/16/2024 N/A 80492-Zyxafktp Plate Each Additional 09/16/2024 N/A 31748-WAEW SKIN LESIONS, OVER 4 09/16/2024 N/A Encounters Encounter Location Date Provider Diagnosis [facility] [address] [place] [address] 09/16/2024 Sonido Walter Type 2 diabetes mellitus with diabetic polyneuropathy E11.42 ; Tinea unguium B35.1 ; Ingrown nail L60.0 ; Other hammer toe(s) (acquired), right foot M20.41 and Other hammer toe(s) (acquired), left foot M20.42 Assessments Encounter Date Diagnosis (ICD Code) Assessment Notes Treatment Notes Treatment Clinical Notes Section Notes 09/16/2024 Type 2 diabetes mellitus with diabetic polyneuropathy (ICD-10 - E11.42) 09/16/2024 Tinea unguium (ICD-10 - B35.1) 09/16/2024 Ingrown nail (ICD-10 - L60.0) 09/16/2024 Other hammer toe(s) (acquired), right foot (ICD-10 - M20.41) Patient Educated with: DIABETIC FOOT CARE INSTRUCTIONS. pdf (DIABETIC FOOT CARE INSTRUCTIONS. pdf) 09/16/2024 Other hammer toe(s) (acquired), left foot (ICD-10 - M20.42) Plan Of Treatment Treatment Notes Assessment Notes Other hammer toe(s) (acquired), right fo ot Patient Educated with: DIABETIC FOOT CARE INSTRUCTIONS.pdf (DIABETIC FOOT CARE INSTRUCTIONS.pdf) Pending Test Test Name Order Date 92773-AMCUPMK NAIL, 6 OR MORE 09/16/2024 66221-Zmmfgogm Plate 09/16/2024 34967-Uhkhjldk Plate Each Additional 06/2024 60157-LPCD SKIN LESIONS, OVER 4 09/16/20 24 Next Appt Details Follow Up: prn, Reason: Provider Name:Sonido Walter , 03/14/2025 03:45:00 PM, [address] [place] [address], [place], [address], Procedure Notes * Category Sub-Category Detail Notes Nail Avulsion Procedure A fine sterile e levator was placed between the eponychium, nail fold, and nail plate to separate the the structures. A sterile nail splitter, and/or sterile 316 blade, was then used to longitudinally section the nail along its entire length through the eponychium to the area under the nail fold. The offending portion of nail was from the nail bed with a rolling action and then removed with a hemostat. No underlying bone was identified. There was minimal bleeding as hemostasis was achieved through the temporary use of either a digital tournaquet or the aforementioned local with epinephrine. A bacitracin sterile dressing was applied. Local wound aftercare instructions were discussed and dispensed. The patient was informed of both conservative and future surgical procedures to prevent recurrence. Tylenol or Motrin was recommended for pain or discomfort (42056/32) , DIABETES: Pt was advised as to the risk of delayed or nonhealing due to diabetes. Pt is to call the office with any questions, concerns, or complications , DIABETES: Matricectomy deferred at this time due to diabetes risk Anesthesia was deferred - NEURO JESSA: patient has medically documented neuropathic condition affecting sensation Location Lateral nail border, TA,T5 Debride Nail 6-10 Nail debridement Performance o f this nail treatment by a nonprofessional would put this patients foot and overall health at risk. Therefore, debridement to affected nail(s), as described in exam, was performed extensively to reduce/remove overall nail length, girth, thickness, subungual debris, and necrotic tissue, by manual and/or electrical means through the use of a nail nipper and/or dremel-type roll grinder operator, to a more viable healthy nail plate or bed tissue 6-10. Silver nitrate used for any petechial bleeding as necessary. Definitive antifungal treatment options have been reviewed and discussed with the patient. The patient chooses, no pharmaceutical tx - 18802 Keratoma Treatment Parring or Cutting o f Benign Hyperkeratotic Lesion(s) (-57) More than 4 Lesions - The Benign hyperkeratotic lesions, as described in exam, were pared, and/or cut utilizing a sterile 15 blade, tissue nippers, and/or dremel - 27799 Progress Notes * Steven LOCKHART JrDOB:1949 (74 yo M)Acc No.[id number]:09/16/2024 Progress Note Patient:?Steven LOCKHART Provider:?Sonido Walter DPM :1950???Age:74 Y???Sex:Male Darryl e:09/16/2024 Address:[address] [place], [place] [id number] Pcp:Shana Chacon MD Subjective: * Chief Complaints: * ???At Risk FootcareIngrown n ail(s)Toe Irritation * HPI: ???At Risk footcare:?Pt States Last PCP Visit:?Date?07/27/2024 ???Toe pain:?Location:?B/L feet.?Duration:?several years.?Course:?worse.?Aggravated by:?shoes, any pressure.?Treatments:?change in shoes.? * ROS:?General/Constitutional:?Nausea?denies.?Vomiting?denies.?Hunger Thirst?admits.?Loss appetite?denies.?Chills?denies.?Fatigue?admits.?Fever?denies.?Night Sweats?denies.?Unexplained weight loss?denies.?Unexplained weight gain?denies.?HEENTM:?Dentures?denies.?Dizziness?admits.?Glasses/contacts?admits.?Retinopathy?den ies.?Blurred/double vision?denies.?TMJ?denies.?Discharge/drainage?denies.?Implants?denies.?Sore throat?denies.?Dental implants?denies.?Hard of hearing ?denies.?Difficulty chewing/swallowing/speaking?denies.?Nose bleeds?denies.?Sore mouth?denies.?Respiratory:?On O xygen?denies.?Pneumonia/pleurisy?denies.?Bronchitis?denies.?Emphysema?denies.?Co ughing?denies.?Cough blood?denies.?Shortness of breath?admits.?Wheezing?denies.?Cardiovascular:?Pacemaker?denies.?MVP?denies.?WPW?denies.?CHF?denies.?Heart attack?denies.?Septal defect?denies.?Rapid beat?denies.?Chest pain ?denies.?Atrial Fib.?denies.?Murmur/Palpitations?denies.?Gastrointestinal:?Hemorrhoids?denies.?Stomach/Abdominal pain?denies.?Dark blood stool?denies.?Irritable bowel ?denies.?Constipation?denies.?Diarrhea?denies.?Hematology:?Swelling?denies.?Clots?denies.?Varicose Veins?Admits.?Bruising?denies.?Bleeding problem?denies.?Genitourinary:?Blood urine?denies.?Frequent/Painfu/urination/bladder control?denies.?Kidney stones?denies.?Infection (UTI)?denies.?Nephropathy?denies.?sex trans dis (STD)?denies.?Prostate?admits.?Musculoskeletal:?Hammertoes?admits.?Bunions?admits.?Back Pain?denies.?Muscle Cramps/ Resting?denies.?Muscle cramps / walking?denies.?Generalized aches and pains?admits.?Weakness?denies.?Integ.:?Gomez?denies.?Scars?admits.?Corns/calluses?admits.?Ingrown nails?admits.?Painful nails?denies.?Open Sores?denies.?Rashes?denies.?Neurologic:?Difficulty sleeping?denies.?Brain disorder?denies.?Numbness?admits.?Balance t rouble?admits.?Confusion?denies.?Fainting/blackouts?denies.?Tingling?denies.?Anthony mors?denies.? * Medical History:? * Surgical History:?polyp laron veronica 2016oral surgery 08/2018teeth removed 12/2019prostate surgery 07/08/21laser eye treatment. pressure in eyes * Hospitalization/Major Diagno stic Procedure:?[facility] Fell on the staires 2015[facility] three days Bladder infection 02/2019[facility] Question Covid 01/2020[facility] Colonoscopy 07/2020[facility]- bladder infection 10/08/2020[facility], prostate surgery 07/08/21[facility]- covid 05/2022 * Family History:?Mother: doron lechuga, diagnosed with Other malignant neoplasm of unspecified site, Unspecified essential hypertension.?Father: , heart attack, diagnosed with Unspecified essential hypertension.?Spouse: .? * Social History:?Tobacco Use:?Tobacco use other than smoking?Are you an other tobacco user??No ?Tobacco Control (Standard)?Tobacco use:?Nonsmoker ?Additional Findings: Tobacco non-user?Current nonsmoker * Medications:?TakingAspirin E C , Notes to Pharmacist: prnAtorvastatin Calcium 10 MG Tablet 1 tablet Orally Once a day busPIRone HCl Fesoterodine Fumarate , Notes to Pharmacist: 4mgFluoxetine glipiZIDE ER 5 MG Tablet Extended Release 24 Hour 1 tablet Orally Once a day Gold [place] Ultimate 3-30 % Cream as directed Externally Losartan Potassium-HCTZ 100-25 MG Tablet 2 tablets Orally Once a day metFORMIN HCl 1000 MG Tablet 1 tablet with meals Orally Twice a day Multivitamin Adult Myrbetriq PROzac 40 MG Capsule 1 capsule Orally Once a day Spironolactone Tresiba 100 UNIT/ML Solution as directed , Notes to Pharmacist: 80 units a dayToviaz Tylenol Vitamin D3 Victoza , Notes to Pharmacist: 1.8 unitsExtra Depth Orthopedic Shoes (1 Pair) with Customized Heat Molded Multidensity Innersoles (3 Pair) as directed Dx: NIDDM/Polyneuropathy (E11.42), Hammertoe Foot Deformity (M20.41,M20.42), Preulcerative Skin Lesion(s) (L85.1 Taking Aspirin EC , Notes to Pharmacist: prnTaking Atorvastatin Calcium 10 MG Tablet 1 tablet Orally Once a day Taking busPIRone HCl Taking Fesoterodine Fumarate , Notes to Pharmacist: 4mgTaking Fluoxetine Taking glipiZIDE ER 5 MG Tablet Extended Release 24 Hour 1 tablet Orally Once a day Taking Gold [place] Ultimate 3-30 % Cream as directed Externally Taking Losartan Potassium-HCTZ 100-25 MG Tablet 2 tablets Orally Once a day Taking metFORMIN HCl 1000 MG Tablet 1 tablet with meals Orally Twice a day Taking Multivitamin Adult Taking Myrbetriq Taking PROzac 40 MG Capsule 1 capsule Orally Once a day Taking Spironolactone Taking Tresiba 100 UNIT/ML Solution as directed , Notes to Pharmacist: 80 units a dayTaking Toviaz Taking Tylenol Taking Vitamin D3 Taking Victoza , Notes to Pharmacist: 1.8 unitsTaking Extra Depth Orthopedic Shoes (1 Pair) with Customized Heat Molded Multidensity Innersoles (3 Pair) as directed Dx: NIDDM/Polyneuropathy (E11.42), Hammertoe Foot Deformity (M20.41,M20.42), Preulcerative Skin Lesion(s) (L85.1 Not-Taking/PRNKetoconazole 2 % Cream 1 application to affected area Externally Once a day Mounjaro Tresiba 40 units oxyBUTYnin Alfuzosin HCl Tamsulosin HCl 0.4 MG Capsule 1 capsule Orally Once a day Victoza Victoza 1.5 units amLODIPine Besylate 10 MG Tablet 1 tablet Orally Once a day Tresiba FlexTouch 100 UNIT/ML Solution Pen-injector 50 units Subcutaneous Victoza 18 MG/3ML Solution Pen-injector as directed Subcutaneous Januvia 100 MG Tablet 1 tablet Orally Once a day Penicillin Basaglar KwikPen 100 UNIT/ML Solution Pen-injector Subcutaneous hydroCHLOROthiazide Medication List reviewed and reconciled with the patientNot-Taking/PRN Ketoconazole 2 % Cream 1 application to affected area Externally Once a day Not-Taking/PRN Mounjaro Not-Taking/PRN Tresiba 40 units Not-Taking/PRN oxyBUTYnin Not-Taking/PRN Alfuzosin HCl Not-Taking/PRN Tamsulosin HCl 0.4 MG Capsule 1 capsule Orally Once a day Not-Taking/PRN Victoza Not-Taking/PRN Victoza 1.5 units Not-Taking/PRN amLODIPine Besylate 10 MG Tablet 1 tablet Orally Once a day Not-Taking/PRN Tresiba FlexTouch 100 UNIT/ML Solution Pen-injector 50 units Subcutaneous Not-Taking/PRN Victoza 18 MG/3ML Solution Pen-injector as directed Subcutaneous Not-Taking/PRN Januvia 100 MG Tablet 1 tablet Orally Once a day Not-Taking/PRN Penicillin Not-Taking/PRN Basaglar KwikPen 100 UNIT/ML Solution Pen-injector Subcutaneous Not-Taking/PRN hydroCHLOROthiazide Medication List reviewed and reconciled with the patient * Allergies:?Advil: kidney iss ues - Side EffectsLisinopril: kidney issuesIbuprofen: kidney issuesMotrin: kidney issuesyes[Allergies Verified] Objective: * Vitals:?Ht:5ft 11in, Wt:291, BMI:40.58, Shoe size:12EEE, BS:117, Ht-cm: 180.34 cm, Wt-k kg. * ???Past Orders: Lab:HEMOGLOBIN A1C (GLYCOHEM OGLOBIN) * Collection Date 09/17/2023 11/25/2022 Collection Time 09:08 AM 09:28 AM Order Date 09/17/2023 11/25/2022 HEMOGLOBIN A1C % (HH) 8.9 Over 8 * Examination: ???Ophthalmology Referral: ?DIABETES EYE EXAM?Procedure Performed:?Yes ?Date of Exam Performed?07/29/2024 ?Diabetic Retinopathy Screening:?Yes ?Findings of Diabetic Eye Exam:?no retinopathy?Neurological: ?SENSORY:? Neurological exam demonstrates, reduced light touch sensation, reduced sharp/dull pin prick discrimination , reduced vibration sensation, B/L, 5.07 monofilament test performed at plantar aspects of 5 varied sites per foot shows sensation, reduced , B/L.?Nails: ?NAILS are:?Elongated, overgrown, dystrophic, lytic, greater than 3mm thick, discolored and friable with crumbly malodorous subungual debris, TA, T1, T3, T4, T5, T6, T8, T9.?Ingrown Nail: ?INSPECTION:?Reveals nail incurvation, dull pain on palpation due to neuropathy, groove hypertrophy, Lateral nail border, TA, T5.?Dermatologic: ?SKIN FINDINGS:?Skin exam reveals Keratotic lesion(s) located at, SUB MTH (s), 1, B/L , SUB MTH (s), 4, B/L , Plantar, Heel(s), B/L .?Orthopedic: ?MUSCLE STRENGTH:?5/5 all groups in a symmetrical fashion , B/L.?FOOT MORPHOLOGY:? Pes Planus structure, No Charcot collapse/destruction noted at MTJ.?DIGITAL DEFORMITIES:?Digital contracture, PIPJ, 2-5 B/L, incompl-reducible to push-up test, no over, nor underlapping , with evidence of shoe producing skin irritation.?FOOTWEAR:?worn, OT were inspected and noted to be severely worn , in poor condition not giving proper support at the present time , shoe gear properties exacerbate patients foot/toe deformity.?Vascular: ?DP PULSES (B):? 2/4, B/L.?PT PULSES (B):? 2/4, B/L.?CAPILLARY FILL TIME:? 3 secs. per digit, B/L.?TROPHIC CONDITION-TEXTURE/ELASTICITY/TURGOR/HAIR GROWTH (B):?normal, B/L.?TEMPERTURE GRADIENT (C):?normal, warm to cool, proximal to distal, B/L, B/L.?PIGMENTATION:?normal, B/L.?EDEMA (C):?absent, B/L.?General Examination: ?GENERAL APPEARANCE:?Reveals a pleasant, alert, well nourished, well- developed, well hydrated individual, who demonstrates proper attention to hygiene/body habitus, and is in no acute distress, Pt serves as own historian for office visit today.?ORIENTED:?person, place, and time.?FOOT EXAM:?Lower Extremity Neurological Exam performed:?Yes ?Visual exam of foot performed:?Yes ?Date?09/16/2024 ?Footwear Evaluation?Footwear Evaluation performed:?Yes??? Assessment: * Assessment: 1.?Type 2 diabetes mellitus with diabetic polyneuropathy - E11.42 (Primary)???2.?Tinea unguium - B35.1???3.?Ingrown nail - L60.0???Specify :Lateral nail border, TA, T5???4.?Other hammer toe(s) (acquired), right foot - M20.41???Specify :Chronic problem, Worse (4)???5.?Other hammer toe(s) (acquired), left foot - M20.42???Specify :Chronic problem, Worse (4)??? Plan: * Treatment: 2.?Ingrown nail?Procedure: 47354-Nkvzvcxg Plate ?Procedure: 30743-Dqwisltz Plate Each Additional 3.?Other hammer toe(s) (acqu ired), right foot? Notes: Patient Educated with: DIABETIC FOOT CARE INSTRUCTIONS.pdf (DIABETIC FOOT CARE INSTRUCTIONS.pdf)?? * Procedures:?Debride Nail 6-10:?Nail debridement?Performance of this nail treatment by a nonprofessional would put this patients foot and overall health at risk. Therefore, debridement to affected nail(s), as described in exam, was performed extensively to reduce/remove overall nail length, girth, thickness, subungual debris, and necrotic tissue, by manual and/or electrical means through the use of a nail nipper and/or dremel-type roll grinder operator, to a more viable healthy nail plate or bed tissue 6-10. Silver nitrate used for any petechial bleeding as necessary. Definitive antifungal treatment options have been reviewed and discussed with the patient. The patient chooses, no pharmaceutical tx - 59742.?Keratoma Treatment:?Parring or Cutting of Benign Hyperkeratotic Lesion(s)?(-57) More than 4 Lesions - The Benign hyperkeratotic lesions, as described in exam, were pared, and/or cut utilizing a sterile 15 blade, tissue nippers, and/or dremel - 58179.?Nail Avulsion:?Location?Lateral nail border,TA,T5.?Anesthesia?was deferred - NEUROPATHY: patient has medically documented neuropathic condition affecting sensation.?Procedure?A fine sterile elevator was placed between the eponychium, nail fold, and nail plate to separate the the structures. A sterile nail splitter, and/or sterile 316 blade, was then used to longitudinally section the nail along its entire length through the eponychium to the area under the nail fold. The offending portion of nail was from the nail bed with a rolling action and then removed with a hemostat. No underlying bone was identified. There was minimal bleeding as hemostasis was achieved through the temporary use of either a digital tournaquet or the aforementioned local with epinephrine. A bacitracin sterile dressing was applied. Local wound aftercare instructions were discussed and dispensed. The patient was informed of both conservative and future surgical procedures to prevent recurrence. Tylenol or Motrin was recommended for pain or discomfort (88745/32) , DIABETES: Pt was advised as to the risk of delayed or nonhealing due to diabetes. Pt is to call the office with any questions, concerns, or complications , DIABETES: Matricectomy deferred at this time due to diabetes risk.? * Procedure Codes:?70343 DEBRI DE NAIL, 6 OR MORE, Modifiers: XS 42033 Avulsion Plate, Modifiers: XS , [id number] Avulsion Plate Each Additional, Modifiers: XS , [id number] TRIM SKIN LESIONS, OVER 4, Modifiers: XS * Preventive Medicine:? ??Counseling:?Discussion:?-13: Office or other outpatient visit for the evaluation and management of an established patient, which required a medically appropriate history and/or examination and LOW level of DECISION MAKING for: 1 STABLE ACUTE UNCOMPLICATED PROBLEM, 2 OR MORE MINOR PROBLEMS, OR 1 STABLE CHRONIC PROBLEM, THAT POSE(S) A LOW RISK FOR MORBIDITY/MORTALITY. The visit on the day of the encounter encompassed interpreting the data and educating the patient as to the nature of their condition, treatment options available according to their individual PMH, meds, allergies, and overall health/living conditions, as well as any potential risks or complications that may occur from a failure to adhere to, and participate in, the recommended course of therapy. The discussion included a complete verbal, and/or written explanation of the examination results, any x-rays taken, the proposed diagnosis, and outline of the treatment plan. A schedule for future care needs was also explained. The patient verbalized an understanding of the instructions at this time and agreed to be an active participant in their treatment. If the patient should think of any questions or concerns after the visit, I have encouraged the patient to call the office.?Digital Surgery:?We elected to try conservative treatment at the present time, due to the patients age, and medical history.?Digital Treatment:?I explained to the patient the possible etiologies of Hammertoes, including genetics/foot type/shoegear/activity level/exercise routine and the risks/benefits of all the different treatment options for their pain including: No treatment at all, Rest, Ice, New/supportive/wider/deeper Shoe gear, Digital Padding/Strapping/Taping/Bracing/Gel protective sleeves, Foot/Ankle AFO Bracing, Stretching exercises, Deep Tissue Massage, Arch support/shoe inserts with splay metatarsal padding, and Custom orthoses. I insisted that any digital devices be removed daily and not worn overnight for safety. The patient is to carefully examine the toes daily for any skin irritation while using any splinting or padding device. The advantages and disadvantages of each option were discussed and the patients questions re: shoe gear, padding, custom vs prefabricated inserts, activity level, and consistency in home treatment regimens for optimal success were answered to their verbally confirmed satisfaction.?Shoe Gear Counseling:?SHOE Rx - The patient was counseled in great detail on their muscoloskeletal foot and toe deformities which coincided with the dermatological presentations visualized on exam. We discussed how their deformities put the integrity of their feet at risk for potential pedal complications which makes the accomidative diabetic shoes and cutomizable inserts medically necessary. We discussed the different shoe and insert treatment types and options, as well as the important advantages for adhering to regularly wearing these accomidative devices daily. The patient was made aware of the fact that a failure to abide by these recommedations may be deleterious to their foot health as they are able to prevent many pedal complications such as skin irritation, skin ulceration, infection, and even loss of toe/foot/leg/or life. Time was also spent with the patient dispensing and discussing proper diabetic footcare techniques including daily skin moisturization, daily foot inspection for any interruption in skin integrity including open lesions, or sign of infection such as redness/malodor/drainage/swelling. Also discussed and recommended were procedures regarding daily shoe inspection for the presence of internal foreign bodies as well as any visualized irregular shoe or insert wear. Patient questions re: shoes, inserts, and self foot inspections were answered to their satisfaction as the patient verbally confirmed a full understanding of the above information, Patient defers recommended Orthopedic shoes.? ??Screening/Special Tests:?Fall Risk?Screening:?No falls in the past year ?FALLS: Screening for Future Fall Risk?Have you had any falls with injury in the past year??No * Follow Up:?prn * Images: * Sign off status: Completed true * Provider:?Sonido Walter DPM Date:?2023 Generated for Melissa rubio/Kalani/Yolanda on:?02/01/2025 05:37 PM EDT History and Physical Notes * HPI (History of Present Illness) Category Sub-Category Detail Notes Category Not es Toe pain Location: B/L feet Duration: several years Course: worse Aggravated by: shoes, any pressure Treatments: change in shoes At Risk footcare Pt States Last PCP Visit: Date: 4 Examination Category Sub-Category Detail Notes Category Not es Ingrown Nail INSPECTION: Reveals nail inc urvation, dull pain on palpation due to neuropathy, groove hypertrophy, Lateral nail border, TA, T5 Neurological SENSORY: Neurological exa m demonstrates, reduced light touch sensation, reduced sharp/dull pin prick discrimination , reduced vibration sensation, B/L, 5.07 monofilament test performed at plantar aspects of 5 varied sites per foot shows sensation, reduced , B/L Dermatologic SKIN FINDINGS: Skin exam reveal s Keratotic lesion(s) located at, SUB MTH (s), 1, B/L , SUB MTH (s), 4, B/L , Plantar, Heel(s), B/L Orthopedic FOOT MORPHOLOGY: Pes Planus stru cture, No Charcot collapse/destruction noted at MTJ FOOTWEAR: worn, OT were inspec meghan and noted to be severely worn , in poor condition not giving proper support at the present time , shoe gear properties exacerbate patients foot/toe deformity DIGITAL DEFORMITIES: Digital contracture , PIPJ, 2-5 B/L, incompl-reducible to push-up test, no over, nor underlapping , with evidence of shoe producing skin irritation MUSCLE STRENGTH: 5/5 all groups in a symmetrical fashion , B/L General Examination GENERAL APPEARANCE: Reveals a pleasant, alert, well nourished, well-developed, well hydrated individual, who demonstrates proper attention to hygiene/body habitus, and is in no acute distress, Pt serves as own historian for office visit today FOOT EXAM: Lower Extremity Neurological Exa m performed:: Yes Visual exam of foot performed:: Yes Date: 09/16/2024 ORIENTED: person, place, and t philomena Footwear Evaluation Footwear Evaluation performe d:: Yes Ophthalmology Referral DIABETES EYE EXAM Procedure Perform ed:: Yes ?Date of Exam Performed: 07/29/2024 Diabetic Retinopathy Screening:: Yes Findings of Diabetic Eye Exam:: no retin opathy Vascular DP PULSES (B): 2/4, B/L PT PULSES (B): 2/4, B/L CAPILLARY FILL TIME: 3 secs. per digit, B/L TEMPERTURE GRADIENT (C): normal, warm to cool, proximal to distal, B/L, B/L TROPHIC CONDITION-TEXTURE/ELASTICITY/TURGOR/HAIR GROWTH (B): normal, B/L EDEMA (C): absent, B/L PIGMENTATION: normal, B/L Nails NAILS are: Elongated, overg rown, dystrophic, lytic, greater than 3mm thick, discolored and friable with crumbly malodorous subungual debris, TA,T1,T3,T4,T5,T6,T8, T9
--- OUTSIDE RECORDS SUMMARY | 2025-02-01 17:38 | XMS_ITS ---
[facility] Address [address] [place] [address] Care Team Providers Care Electrician Second Name Role Phone Shana Chacon MD Primary Care Provider Sonido Nielson Unavailable [phone] Allergies Allergen (clinical drug ingredient) Drug/Non Drug Allergy documented on EMR Reaction Allergy Type Onset Date Status ibuprofen Advil kidney issues Drug Allergy Act kelin ibuprofen Ibuprofen kidney issues Drug Allergy Act kelin lisinopril Lisinopril kidney issues Drug Allergy A ctive Motrin kidney issues Drug Allergy Act kelin REASON FOR VISIT At Risk Footcare, Ingrown nail(s) Medications Medication SIG (Take, Route, Frequency, Duration) Notes Start Date End Date Status Victoza 18 MG/3ML Subcutaneous for 20 Days Active amLODIPine Besylate 10 MG Oral for 90 Days Active busPIRone HCl Active Atorvastatin Calcium 10 MG 1 tablet Orally Once a day Active Aspirin EC prn Active Testosterone 50 MG/5GM (1%) Transdermal for 30 Days Not-Taking Testosterone 50 MG/5GM (1%) APPLY 1 PACKET DAILY TRANSDERMALLY TO SHOULDER AND RUB IN UNTIL DRY Transdermal for 30 Days Active Testosterone 50 MG/5GM (1%) Transdermal for 30 Days Active Irbesartan-hydroCHLOROthi azide 300-12.5 MG Oral for 90 Days Active hydroCHLOROthiazide Not-Taking Basaglar KwikPen 100 UNIT/ML Subcutaneous Not-Taking Penicillin Not-Takin g Januvia 100 MG 1 tablet Orally Once a day Not-Taking Victoza 18 MG/3ML as directed Subcutaneous Not-Taking Tresiba FlexTouch 100 UNIT/ML 50 units Subcutaneous Not-Taking amLODIPine Besylate 10 MG 1 tablet Orall y Once a day Not-Taking Victoza 1.5 units No t-Taking Victoza Not-Taking Tamsulosin HCl 0.4 MG 1 capsule Orally Once a day for 30 day(s) Not-Taking Alfuzosin HCl Not-Ta jessie oxyBUTYnin Not-Takin g Tresiba 40 units Not -Taking Mounjaro Not-Taking Ketoconazole 2 % 1 application to affected area Externally Once a day for 30 days 04/14/2019 Not-Taking Extra Depth Orthopedic Shoes (1 Pair) with Customized Heat Molded Multidensity Innersoles (3 Pair) as directed Dx: NIDDM/Polyneuropath y (E11.42), Hammertoe Foot Deformity (M20.41,M20.42), Preulcerative Skin Lesion(s) (L85.1 09/17/2023 Active Victoza 1.8 units Active Vitamin D3 Active Tylenol Active Toviaz Active Tresiba 100 UNIT/ML as directed 80 units a day Active Spironolactone Activ e PROzac 40 MG 1 capsule Orally Once a day Active Myrbetriq Active Multivitamin Adult A ctive metFORMIN HCl 1000 MG 1 tablet with meal s Orally Twice a day Active Losartan Potassium-HCTZ 100-25 MG 2 tablets Orally Once a day Active [place] Ultimate 3-30 % as directed Externally Active glipiZIDE ER 5 MG 1 tablet Orally Once a day Active Fluoxetine Active Fesoterodine Fumarate 4mg Active Social History Tobacco Use: Social History Observation Description Date Details (start date - stop date) Never Smoker NA - NA Tobacco use other than smoking: Question Answer Notes Are you an other tobacco user? No Tobacco Control (Standard) Question Answer Notes Tobacco use: Nonsmoker Additional Findings: Tobacco non-user Current no nsmoker AUDIT-C (Standard) Question Answer Notes Did you have a drink containing alcohol in the p ast year? No Points 0 Interpretation Negative Vital Signs Height 5ft 11in in 12/16/2024 Weight 291 lbs 12/16/2024 BMI 40.58 kg/m2 12/16/2024 Blood pressure systolic 120 mm Hg 12/16/19 25 Blood pressure diastolic 80 mm Hg 025 Procedures Procedure Date Ordered Date Performed Result Body Sit e 69396-GOBJFCZ NAIL, 6 OR MORE 12/16/2024 N/A 17361-Qgexfzuq Plate 12/16/2024 N/A 75814-Rsvkktnz Plate Each Additional 12/16/2024 N/A 66177-WWQU SKIN LESIONS, OVER 4 12/16/2024 N/A Encounters Encounter Location Date Provider Diagnosis [facility] [address] [address] 12/16/2024 Sonido Walter Type 2 diabetes mellitus with diabetic polyneuropathy E11.42 ; Tinea unguium B35.1 and Ingrown nail L60.0 Assessments Encounter Date Diagnosis (ICD Code) Assessment Notes Treatment Notes Treatment Clinical Notes Section Notes 12/16/2024 Type 2 diabetes mellitus with diabetic polyneuropathy (ICD-10 - E11.42) 12/16/2024 Tinea unguium (ICD-10 - B35.1) 12/16/2024 Ingrown nail (ICD-10 - L60.0) 12/16/2024 Other Plan Of Treatment Pending Test Test Name Order Date 13180-TBUUESX NAIL, 6 OR MORE 12/16/2024 32317-Owaysodt Plate 12/16/2024 51922-Timysigi Plate Each Additional 05/2025 23828-HOGA SKIN LESIONS, OVER 4 12/16/19 25 Next Appt Details Follow Up: prn, Reason: Provider Name:Sonido Walter , 03/14/2025 03:45:00 PM, [address] [place] [address], [phone], Procedure Notes * Category Sub-Category Detail Notes [...] Motrin was recommended for pain or discomfort (60703/32) , DIABETES: Pt was advised as to the risk of delayed or nonhealing due to diabetes. Pt is to call the office with any questions, concerns, or complications , DIABETES: Matricectomy deferred at this time due to diabetes risk Anesthesia was deferred - NEURO JESSA: patient has medically documented neuropathic condition affecting sensation Location Lateral nail border, TA,T5 Debride Nail 6-10 Nail debridement Due to the cl inical pathology outlined in the exam findings, performance of this nail treatment is medically necessary as its management by an unskilled/untrained nonprofessional would put this patients foot and overall health at risk. Therefore, debridement to affected nail(s), as described in exam ( TA, T1, T3, T4, T5, T6, T8, T9 ), was performed exclusively by the physician of record to reduce/remove overall nail length, girth, thickness, subungual debris, and necrotic tissue, by manual and/or electrical means through the use of a nail nipper and/or dremel-type almond grinder, to a more viable healthy nail plate or bed tissue 6-10 nails in total. Silver nitrate was used for any petechial bleeding as necessary. Definitive antifungal treatment options, both pharmaceutical and surgical, have been reviewed and discussed with the patient. The patient solely prefers the use of intermittent/as needed professional debridement services for their nail condition and understands the need for additional periodic treatments to maintain effectiveness in symptomatic relief - 15109 Keratoma Treatment Parring or Cutting o f Benign Hyperkeratotic Lesion(s) (-57) More than 4 Lesions - Due to the a t risk nature of the patients medical condition as documented in the exam findings, performance of this keratoderma treatment is medically necessary as its management by an unskilled/untrained nonprofessional would put this patients foot and overall health at risk. Therefore, the benign hyperkeratotic lesions, ( 6 ) in total, locations as stated and described in the exam ( SUB MTH (s), 1, B/L , SUB MTH (s), 4, B/L , Plantar, Heel(s), B/L ), were pared, and/or cut utilizing a sterile 15 blade, tissue nippers, and/or power dremel instrumentation by the physician of record - 93854 Progress Notes * Steven LOCKHARTB:1949 (74 yo M)Acc No.[id number]:12/16/2024 Progress Note Patient:?Steven LOCKHART Jr Provider:?Sonido Walter DPM :1950???Age:74 Y???Sex:Male Darryl e:12/16/2024 Address:[address] [place], [place] [id number] Pcp:Shana Chacon MD Subjective: * Chief Complaints: * ???At Risk FootcareIngrown n ail(s) * HPI: ???At Risk footcare:?Pt States Last PCP Visit:?Date?11/17/2024 * ROS:?General/Constitutional:?Nausea?denies.?Vomiting?denies.?Hunger Thirst?admits.?Loss appetite?denies.?Chills?denies.?Fatigue?admits.?Fever?denies.?Night Sweats?denies.?Unexplained weight loss?denies.?Unexplained [...] Question Covid 01/2020[facility] Colonoscopy 07/2020[facility]- bladder infection 10/08/2020[facility], prostate surgery 07/08/21[facility]- covid 05/2022 * Family History:?Mother: doron lechuga, diagnosed with Other malignant neoplasm of unspecified site, Unspecified essential hypertension.?Father: , heart attack, diagnosed with Unspecified essential hypertension.?Spouse: .? * Social History:?Tobacco Use:?Tobacco use other than smoking?Are you an other tobacco user??No ?Tobacco Control (Standard)?Tobacco use:?Nonsmoker ?Additional Findings: Tobacco non-user?Current nonsmoker ???Drugs/Alcohol:?Drugs?Have you used drugs other than those for medical reasons in the past 12 months??No ???Miscellaneous:?Caffeine: yes. ?Children: no. ?Exercise: no. ?Marital status: / in a fdc. ?Occupation: [employer]. ???Drug/Alcohol:?AUDIT-C (Standard)?Did you have a drink containing alcohol in the past year??No ?Points?0 ?Interpretation?Negative * Medications:?TakingGab Mehta , Notes to Pharmacist: prnAtorvastatin Calcium 10 [...] Foot Deformity (M20.41,M20.42), Preulcerative Skin Lesion(s) (L85.1 Irbesartan-hydroCHLOROthiazide 300-12.5 MG Tablet Oral Testosterone 50 MG/5GM (1%) Gel Transdermal Testosterone 50 MG/5GM (1%) Gel APPLY 1 PACKET DAILY TRANSDERMALLY TO SHOULDER AND RUB IN UNTIL DRY Transdermal amLODIPine Besylate 10 MG Tablet Oral Victoza 18 MG/3ML Solution Pen-injector Subcutaneous Taking Aspirin EC , Notes to Pharmacist: [...] Deformity (M20.41,M20.42), Preulcerative Skin Lesion(s) (L85.1 Taking Irbesartan-hydroCHLOROthiazide 300- 12.5 MG Tablet Oral Taking Testosterone 50 MG/5GM (1%) Gel Transdermal Taking Testosterone 50 MG/5GM (1%) Gel APPLY 1 PACKET DAILY TRANSDERMALLY TO SHOULDER AND RUB IN UNTIL DRY Transdermal Taking amLODIPine Besylate 10 MG Tablet Oral Taking Victoza 18 MG/3ML Solution Pen-injector Subcutaneous Not-Taking/PRNKetoconazole 2 % Cream 1 application to [...] KwikPen 100 UNIT/ML Solution Pen-injector Subcutaneous hydroCHLOROthiazide Testosterone 50 MG/5GM (1%) Gel Transdermal Medication List reviewed and reconciled with the [...] 100 UNIT/ML Solution Pen-injector Subcutaneous Not-Taking/PRN hydroCHLOROthiazide Not-Taking/PRN Testosterone 50 MG/5GM (1%) Gel Transdermal Medication List reviewed and reconciled with the patient * Allergies:?Advil: kidney iss ues - Side EffectsLisinopril: kidney issuesIbuprofen: kidney issuesMotrin: kidney issuesyes[Allergies Verified] Objective: * Vitals:?Ht:5ft 11in, Wt:291, BMI:40.58, Shoe size:123EEE, BP:120/80mm Hg, BS:300, Ht-cm: 180.34 cm, Wt-k kg. * ???Past Orders: ???Lab:HEMOGLOBIN A1C (GLYCO HEMOGLOBIN) (Order Date - 10/10/2024) (Collection Date & Time - 10/31/2024 09:11 AM) ? Value Reference Range ?HEMOGLOBIN A1C % (HH) 8.5 * Examination: ???Ophthalmology Referral: ?DIABETES EYE EXAM?Procedure Performed:?Yes ?Date of Exam Performed?10/19/2024 ?Diabetic Retinopathy Screening:?Yes ?Retinal Screening Performed:?Yes ?Findings of Diabetic Eye Exam:?no retinopathy?Neurological: ?SENSORY:? [...] TA, T1, T3, T4, T5, T6, T8, T9, all other nails not described with characteristics as possessing mycosis are elongated, overgrown, and dystrophic.?Ingrown Nail: ?INSPECTION:?Reveals nail incurvation, dull pain on palpation due to neuropathy, groove hypertrophy, Lateral nail border, TA, T5.?Dermatologic: ?SKIN FINDINGS:?Skin exam reveals Keratotic lesion(s) located at, SUB MTH (s), 1, B/L , SUB MTH (s), 4, B/L , Plantar, Heel(s), B/L .? Assessment: * Assessment: 1.?Type 2 diabetes mellitus with diabetic polyneuropathy - E11.42 (Primary)???2.?Tinea unguium - B35.1???3.?Ingrown nail - L60.0???Specify :Lateral nail border, TA, T5??? Plan: * Treatment: 2.?Ingrown nail?Procedure: 46885-Yippsuwq Plate ?Procedure: 60149-Aijpoafg Plate Each Additional * Procedures:?Debride Nail 6-10:?Nail debridement?Due to the clinical pathology outlined in the exam findings, performance of this nail treatment is medically necessary as its management by an unskilled/untrained nonprofessional would put this patients foot and overall health at risk. Therefore, debridement to affected nail(s), as described in exam (?TA,?T1,?T3,?T4,?T5,?T6,?T8,?T9?), was performed exclusively by the physician of record to reduce/remove overall nail length, girth, thickness, subungual debris, and necrotic tissue, by manual and/or electrical means through the use of a nail nipper and/or dremel-type almond grinder, to a more viable healthy nail plate or bed tissue 6- 10 nails in total. Silver nitrate was used for any petechial bleeding as necessary. Definitive antifungal treatment options, both pharmaceutical and surgical, have been reviewed and discussed with the patient. The patient solely prefers the use of intermittent/as needed professional debridement services for their nail condition and understands the need for additional periodic treatments to maintain effectiveness in symptomatic relief - 69092.?Keratoma Treatment:?Parring or Cutting of Benign Hyperkeratotic Lesion(s)?(-57) More than 4 Lesions - Due to the at risk nature of the patients medical condition as documented in the exam findings, performance of this keratoderma treatment is medically necessary as its management by an unskilled/untrained nonprofessional would put this patients foot and overall health at risk. Therefore, the benign hyperkeratotic lesions, ( 6 ) in total, locations as stated and described in the exam (?SUB MTH (s),?1,?B/L?,?SUB MTH (s),?4,?B/L?,?Plantar,?Heel(s),?B/L??), were pared, and/or cut utilizing a sterile 15 blade, tissue nippers, and/or power dremel instrumentation by the physician of record - 77596.?Nail Avulsion:?Location?Lateral nail border,TA,T5.?Anesthesia?was deferred - NEUROPATHY: patient [...] Motrin was recommended for pain or discomfort (18428/32) , DIABETES: Pt was advised as to the risk of delayed or nonhealing due to diabetes. Pt is to call the office with any questions, concerns, or complications , DIABETES: Matricectomy deferred at this time due to diabetes risk.? * Procedure Codes:?41357 DEBRI DE NAIL, 6 OR MORE, Modifiers: XS 81861 Avulsion Plate, Modifiers: XS , [id number] Avulsion Plate Each Additional, Modifiers: XS , [id number] TRIM SKIN LESIONS, OVER 4, Modifiers: XS * Follow Up:?prn * Images: * Sign off status: Completed true * Provider:?Sonido Walter DPM Date:?2024 Generated for Melsisa rubio/Kalani/Yolanda on:?02/01/2025 05:37 PM EDT History and Physical Notes * HPI (History of Present Illness) Category Sub-Category Detail Notes Category Not es At Risk footcare Pt States Last PCP Visit: Date: 5 Examination Category Sub-Category Detail Notes Category Not [...] (s), 4, B/L , Plantar, Heel(s), B/L Ophthalmology Referral DIABETES EYE EXAM Procedu re Performed:: Yes ?Date of Exam Performed: 10/19/2024 Diabetic Retinopathy Screening:: Yes Retinal Screening Performed:: Yes Findings of Diabetic Eye Exam:: no retin opathy Nails NAILS are: Elongated, overg rown, dystrophic, lytic, greater than 3mm thick, discolored and friable with crumbly malodorous subungual debris, TA, T1, T3, T4, T5, T6, T8, T9, all other nails not described with characteristics as possessing mycosis are elongated, overgrown, and dystrophic
--- OUTSIDE RECORDS SUMMARY | 2025-02-01 17:38 | XMS_ITS ---
[facility] Organization [facility] ronnie [place] Address [address] [place] [address] Care Team Providers Care Karate Instructor Name Role Phone Shana Chacon MD Primary Care Provider Sonido Nielson Unavailable [phone] Allergies Allergen (clinical drug ingredient) Drug/Non Drug [...] Notes Start Date End Date Status Victoza Not-Taking Tresiba FlexTouch 100 UNIT/ML 50 units Subcutaneous Not-Taking Victoza 18 MG/3ML as directed Subcutaneous Not-Taking Victoza 1.5 units No t-Taking amLODIPine Besylate 10 MG 1 tablet Orall y Once a day Not-Taking Alfuzosin HCl Not-Ta jessie Tamsulosin HCl 0.4 MG 1 capsule Orally Once a day for 30 day(s) Not-Taking Tresiba 40 units Not -Taking oxyBUTYnin Not-Takin g Mounjaro Not-Taking Tylenol Active Victoza 1.8 units Active Extra Depth Orthopedic Shoes (1 Pair) with Customized Heat Molded Multidensity Innersoles (3 Pair) as directed Dx: NIDDM/Polyneuropath y (E11.42), Hammertoe Foot Deformity (M20.41,M20.42), Preulcerative Skin Lesion(s) (L85.1 09/17/2023 Active Vitamin D3 Active Ketoconazole 2 % 1 application to affected area Externally Once a day for 30 days 04/14/2019 Not-Taking Toviaz Active Spironolactone Activ e Tresiba 100 UNIT/ML as directed 80 units a day Active Myrbetriq Active PROzac 40 MG 1 capsule Orally Once a day Active glipiZIDE ER 5 MG 1 tablet Orally Once a day Active Gold Dunham Ultimate 3-30 % as directed Externally Active Losartan Potassium-HCTZ 100-25 MG 2 tablets Orally Once a day Active metFORMIN HCl 1000 MG 1 tablet with meal s Orally Twice a day Active Multivitamin Adult A ctive Fesoterodine Fumarate 4mg Active Fluoxetine Active Atorvastatin Calcium 10 MG 1 tablet Orally Once a day Active busPIRone HCl Active Aspirin EC prn Active Basaglar KwikPen 100 UNIT/ML Subcutaneous Not-Taking hydroCHLOROthiazide Not-Taking Januvia 100 MG 1 tablet Orally Once a day Not-Taking Penicillin Not-Takin g Social History Tobacco Use: Social History Observation Description Date Details (start date - stop date) Never Smoker NA - NA Tobacco Use/Smoking Question Answer Notes Are you a: nonsmoker Additional Findings: Tobacco Non-User Current no n-smoker Alcohol Screen Question Answer Notes Did you have a drink contain ing alcohol in the past year? Yes How many drinks did you have on a typical day when you were drinking in the past year? 3 or 4 drinks (1 point) Points 1 Interpretation Negative Tobacco use other than smoking: Question Answer Notes Are you an other tobacco user? No Vital Signs Weight 291 lbs 06/23/2024 BMI 40.58 kg/m2 06/23/2024 Procedures Procedure Date Ordered Date Performed Result Body Sit e 72049-PWJFNXI NAIL, 6 OR MORE 06/23/2024 N/A 26154-Uhntppqv Plate 06/23/2024 N/A 29739-Vhilwgfc Plate Each Additional 06/23/2024 N/A 93615-PIWO SKIN LESIONS, OVER 4 06/23/2024 N/A Encounters Encounter Location Date Provider Diagnosis [facility] [address] [address] 06/23/2024 Sonidoadam NagyJose Angel Type 2 diabetes mellitus with diabetic polyneuropathy E11.42 ; Tinea unguium B35.1 and Ingrown nail L60.0 Assessments Encounter Date Diagnosis (ICD Code) Assessment Notes Treatment Notes Treatment Clinical Notes Section Notes 06/23/2024 Type 2 diabetes mellitus with diabetic polyneuropathy (ICD-10 - E11.42) 06/23/2024 Tinea unguium (ICD-10 - B35.1) 06/23/2024 Ingrown nail (ICD-10 - L60.0) Plan Of Treatment Pending Test Test Name Order Date 06266-FBYUQNB NAIL, 6 OR MORE 06/23/2024 41103-Ztizlbli Plate 06/23/2024 86626-Evakwhsh Plate Each Additional 50979-VFUW SKIN LESIONS, OVER 4 06/23/20 24 Next Appt Details Follow Up: prn, Reason: Provider Name:Sonido Walter , 03/14/2025 03:45:00 PM, [address] [place] [address], [id number], Procedure Notes * Category Sub-Category Detail Notes Nail Avulsion Procedure A fine sterile e levator was placed between the eponychium, nail fold, and nail plate to separate the the structures. A sterile nail splitter, and/or sterile #316 blade, was then used to longitudinally section the nail along its entire length through the eponychium to the area under the nail fold. The offending portion of each nail was from the nail bed with a rolling action and then removed with a hemostat. No underlying bone was identified. A bacitracin sterile dressing was applied. Local wound aftercare instructions were discussed and dispensed. The patient was informed of both conservative and future surgical procedures to prevent recurrence (82934/32), DIABETES: Pt was advised as to the risk of delayed or nonhealing due to diabetes. Pt is to call the office with any questions, concerns, or complications, DIABETES: Matricectomy deferred due to diabetes risk Anesthesia was deferred - NEURO JESSA: patient has medically documented neuropathic condition affecting sensation Location Lateral nail border, TA,T5 Debride Nail 6-10 Nail debridement Nail debridem ent performed extensively to reduce/remove overall nail length, girth, thickness, subungual debris, and necrotic tissue, by manual and electrical means through the use of a nail nipper and/or dremel, to more viable healthy nail plate or bed tissue 6-10. Silver nitrate used for any petechial bleeding as necessary. Patient chooses, no pharmaceutical tx (84778) Keratoma Treatment Parring or Cutting o f Benign Hyperkeratotic Lesion(s) 78515 ( More than 4 Lesions ) - The Benign hyperkeratotic lesions, as described above were pared, and/or cut utilizing a sterile 15 blade, tissue nippers, and/or dremel Progress Notes * Steven LOCKHART JrDOB:1949 (73 yo M)Acc No.[id number]:06/23/2024 Progress Note Patient:?Steven Lockhart Provider:?Sonido Walter DPM :1950???Age:73 Y???Sex:Male Darryl e:06/23/2024 Address:[address] [place], [place] [id number] Pcp:Shana Chacon MD Subjective: * Chief Complaints: * ???At Risk FootcareIngrown n ail(s) * HPI: ???At Risk footcare:?Pt States Last PCP Visit:?Date?03/25/2024 States has an appt with PCP soon - next month: Sep * ROS:?General/Constitutional:?Nausea?denies.?Vomiting?denies.?Hunger Thirst?admits.?Loss appetite?denies.?Chills?denies.?Fatigue?admits.?Fever?denies.?Night Sweats?denies.?Unexplained weight loss?denies.?Unexplained weight gain?denies.?HEENTM:?Dentures?denies.?Dizziness?admits.?Glasses/contacts?admits.?Retinopathy?de nies.?Blurred/double vision?denies.?TMJ?denies.?Discharge/drainage?denies.?Implants?denies.?Sore throat?denies.?Dental implants?denies.?Hard of hearing ?denies.?Difficulty chewing/swallowing/speaking?denies.?Nose bleeds?denies.?Sore mouth?denies.?Respiratory:?On Oxygen?denies.?Pneumonia/pleurisy?denies.?Bronchitis?denies.?Emphysema?denies.?C oughing?denies.?Cough blood?denies.?Shortness of breath?admits.?Wheezing?denies.?Cardiovascular:?Pacemaker?denies.?MVP?denies.?WPW?denies.?CHF?denies.?Heart attack?denies.?Septal defect?denies.?Rapid beat?denies.?Chest pain ?denies.?Atrial Fib.?denies.?Murmur/Palpitations?denies.?Gastrointestinal:?Hemorrhoids?denies.?Stomach/Abdominal pain?denies.?Dark blood stool?denies.?Irritable bowel ?denies.?Constipation?denies.?Diarrhea?denies.?Hematology:?Swelling?denies.?Clots?denies.?Varicose Veins?Admits.?Bruising?denies.?Bleeding problem?denies.?Genitourinary:?Blood urine?denies.?Frequent/Painfu/urination/bladder control?denies.?Kidney stones?denies.?Infection (UTI)?denies.?Nephropathy?denies.?sex trans dis (STD)?denies.?Prostate?admits.?Musculoskeletal:?Hammertoes?admits.?Bunions?admits.?Back Pain?denies.?Muscle Cramps/ Resting?denies.?Muscle cramps / walking?denies.?Generalized aches and pains?admits.?Weakness?denies.?Integ.:?Gomez?denies.?Scars?admits.?Corns/calluses?admits.?Ingrown nails?admits.?Painful nails?denies.?Open Sores?denies.?Rashes?denies.?Neurologic:?Difficulty sleeping?denies.?Brain disorder?denies.?Numbness?admits.?Balance trouble?admits.?Confusion?denies.?Fainting/blackouts?denies.?Tingling?denies.?Tr emors?denies.? * Medical History:? * Surgical History:?polyp laron veronica 2016oral surgery 08/2018teeth removed 12/2019prostate surgery 07/08/21laser eye treatment. pressure in eyes * Hospitalization/Major Diagno stic Procedure:?[facility] Fell on [facility] staires 2015[facility] three days Bladder infection 02/2019[facility] Question Covid 01/2020[facility] Colonoscopy 07/2020[facility]- bladder infection 10/08/2020[facility], prostate surgery 07/08/21[facility]- covid 05/2022 * Family History:?Mother: odron lechuga, diagnosed with Unspecified essential hypertension, Other malignant neoplasm of unspecified site.?Father: , heart attack, diagnosed with Unspecified essential hypertension.?Spouse: .? * Social History:?Tobacco Use:?Tobacco Use/Smoking?Are you a:?nonsmoker ?Additional Findings: Tobacco Non-User?Current non-smoker ?Tobacco use other than smoking?Are you an other tobacco user??No ???Drugs/Alcohol:?Drugs?Have you used drugs other than those for medical reasons in the past 12 months??No ?Alcohol Screen?Did you have a drink containing alcohol in the past year??Yes ?How many drinks did you have on a typical day when you were drinking in the past year??3 or 4 drinks (1 point) ?Points?1 ?Interpretation?Negative ???Miscellaneous:?Caffeine: yes. ?no Children. ?no Exercise. ?Marital status: / in a long term. ?Occupation: [employer]. * Medications:?TakingAspirin E C , Notes: prnAtorvastatin Calcium 10 MG Tablet 1 tablet Orally Once a daybusPIRone HCl Fesoterodine Fumarate , Notes: 4mgFluoxetine glipiZIDE ER 5 MG Tablet Extended Release 24 Hour 1 tablet Orally Once a dayGold Dunham Ultimate 3-30 % Cream as directed Externally Losartan Potassium-HCTZ 100-25 MG Tablet 2 tablets Orally Once a daymetFORMIN HCl 1000 MG Tablet 1 tablet with meals Orally Twice a dayMultivitamin Adult Myrbetriq PROzac 40 MG Capsule 1 capsule Orally Once a daySpironolactone Tresiba 100 UNIT/ML Solution as directed , Notes: 80 units a dayToviaz Tylenol Vitamin D3 Victoza , Notes: 1.8 unitsExtra Depth Orthopedic Shoes (1 Pair) with Customized Heat Molded Multidensity Innersoles (3 Pair) as directed Dx: NIDDM/Polyneuropathy (E11.42), Hammertoe Foot Deformity (M20.41,M20.42), Preulcerative Skin Lesion(s) (L85.1Taking Aspirin EC , Notes: prnTaking Atorvastatin Calcium 10 MG Tablet 1 tablet Orally Once a dayTaking busPIRone HCl Taking Fesoterodine Fumarate , Notes: 4mgTaking Fluoxetine Taking glipiZIDE ER 5 MG Tablet Extended Release 24 Hour 1 tablet Orally Once a dayTaking Gold Dunham Ultimate 3- 30 % Cream as directed Externally Taking Losartan Potassium-HCTZ 100-25 MG Tablet 2 tablets Orally Once a dayTaking metFORMIN HCl 1000 MG Tablet 1 tablet with meals Orally Twice a dayTaking Multivitamin Adult Taking Myrbetriq Taking PROzac 40 MG Capsule 1 capsule Orally Once a dayTaking Spironolactone Taking Tresiba 100 UNIT/ML Solution as directed , Notes: 80 units a dayTaking Toviaz Taking Tylenol Taking Vitamin D3 Taking Victoza , Notes: 1.8 unitsTaking Extra Depth Orthopedic Shoes (1 Pair) with Customized Heat Molded Multidensity Innersoles (3 Pair) as directed Dx: NIDDM/Polyneuropathy (E11.42), Hammertoe Foot Deformity (M20.41,M20.42), Preulcerative Skin Lesion(s) (L85.1Not-Taking/PRNKetoconazole 2 % Cream 1 application to affected area Externally Once a dayMounjaro Tresiba 40 units oxyBUTYnin Alfuzosin HCl Tamsulosin HCl 0.4 MG Capsule 1 capsule Orally Once a dayVictoza Victoza 1.5 units amLODIPine Besylate 10 MG Tablet 1 tablet Orally Once a dayTresiba FlexTouch 100 UNIT/ML Solution Pen-injector 50 units Subcutaneous Victoza 18 MG/3ML Solution Pen-injector as directed Subcutaneous Januvia 100 MG Tablet 1 tablet Orally Once a dayPenicillin Basaglar KwikPen 100 UNIT/ML Solution Pen-injector Subcutaneous hydroCHLOROthiazide Medication List reviewed and reconciled with the patientNot-Taking/PRN Ketoconazole 2 % Cream 1 application to affected area Externally Once a dayNot-Taking/PRN Mounjaro Not-Taking/PRN Tresiba 40 units Not-Taking/PRN oxyBUTYnin Not-Taking/PRN Alfuzosin HCl Not-Taking/PRN Tamsulosin HCl 0.4 MG Capsule 1 capsule Orally Once a dayNot-Taking/PRN Victoza Not-Taking/PRN Victoza 1.5 units Not-Taking/PRN amLODIPine Besylate 10 MG Tablet 1 tablet Orally Once a dayNot-Taking/PRN Tresiba FlexTouch 100 UNIT/ML Solution Pen-injector 50 units Subcutaneous Not-Taking/PRN Victoza 18 MG/3ML Solution Pen-injector as directed Subcutaneous Not-Taking/PRN Januvia 100 MG Tablet 1 tablet Orally Once a dayNot-Taking/PRN Penicillin Not-Taking/PRN Basaglar KwikPen 100 UNIT/ML Solution Pen-injector Subcutaneous Not-Taking/PRN hydroCHLOROthiazide Medication List reviewed and reconciled with the patient * Allergies:?Advil: kidney iss ues - Side EffectsLisinopril: kidney issuesIbuprofen: kidney issuesMotrin: kidney issuesyes[Allergies Verified] Objective: * Vitals:?Wt:291, BMI:40.58, S hoe size:12EEE, BS:180, Ht-cm: 180.34 cm, Wt-k kg. * Examination: ???Neurological: ?SENSORY:? Neurological exam demonstrates, reduced light touch [...] , SUB MTH (s), 4, B/L , Heel(s), B/L .? Assessment: * Assessment: 1.?Type 2 diabetes mellitus with diabetic polyneuropathy - E11.42 (Primary)?2.?Tinea unguium - B35.1?3.?Ingrown nail - L60.0, Lateral nail border, TA, T5? Plan: * Treatment: 2.?Ingrown nail?Procedure: 73783-Muaxbefq Plate ?Procedure: 22127-Zxbrpkvw Plate Each Additional * Procedures:?Debride Nail 6-10:?Nail debridement?Nail debridement performed extensively to reduce/remove overall nail length, girth, thickness, subungual debris, and necrotic tissue, by manual and electrical means through the use of a nail nipper and/or dremel, to more viable healthy nail plate or bed tissue 6-10. Silver nitrate used for any petechial bleeding as necessary. Patient chooses, no pharmaceutical tx (92321).?Keratoma Treatment:?Parring or Cutting of Benign Hyperkeratotic Lesion(s)?76037 ( More than 4 Lesions ) - The Benign hyperkeratotic lesions, as described above were pared, and/or cut utilizing a sterile 15 blade, tissue nippers, and/or dremel.?Nail Avulsion:?Location?Lateral nail border,TA,T5.?Anesthesia?was deferred - NEUROPATHY: patient has medically documented neuropathic condition affecting sensation.?Procedure?A fine sterile elevator was placed between the eponychium, nail fold, and nail plate to separate the the structures. A sterile nail splitter, and/or sterile #316 blade, was then used to longitudinally section the nail along its entire length through the eponychium to the area under the nail fold. The offending portion of each nail was from the nail bed with a rolling action and then removed with a hemostat. No underlying bone was identified. A bacitracin sterile dressing was applied. Local wound aftercare instructions were discussed and dispensed. The patient was informed of both conservative and future surgical procedures to prevent recurrence (65445/32), DIABETES: Pt was advised as to the risk of delayed or nonhealing due to diabetes. Pt is to call the office with any questions, concerns, or complications, DIABETES: Matricectomy deferred due to diabetes risk.? * Procedure Codes:?76428 DEBRI DE NAIL, 6 OR MORE, Modifiers: XS 76430 Avulsion Plate, Modifiers: XS , [id number] Avulsion Plate Each Additional, Modifiers: XS , [id number] TRIM SKIN LESIONS, OVER 4, Modifiers: XS * Follow Up:?prn * Images: * Sign off status: Completed true * Provider:?Sonido Walter DPM Date:?2023 Generated for Melissa rubio/Kalani/Yolanda on:?02/01/2025 05:37 PM EDT History and Physical Notes * HPI (History of Present Illness) Category Sub-Category Detail Notes Category Not es At Risk footcare Pt States Last PCP Visit: Date: 03/25/2024 States has an appt with PCP soon - next month: Sep Examination Category Sub-Category Detail Notes Category Not [...] , SUB MTH (s), 4, B/L , Heel(s), B/L Nails NAILS are: Elongated, overg rown, dystrophic, lytic, greater than 3mm thick, discolored and friable with crumbly malodorous subungual debris, TA,T1,T3,T4,T5,T6,T8, T9
--- OUTSIDE RECORDS SUMMARY | 2025-02-01 17:38 | XMS_ITS | Patient Health Record ---
[facility] ronnie DixonSaqib Address [address] [place] [address] Care Team Providers Care Employment Office Clerk Name Role Phone Shana Chacon MD Primary Care Provider Sondio Nielson Unavailable [phone] Allergies Allergen (clinical drug ingredient) Drug/Non Drug Allergy documented on EMR Reaction Allergy Type Onset Date Status ibuprofen Advil kidney issues Drug Allergy Act kelin ibuprofen Ibuprofen kidney issues Drug Allergy Act kelin lisinopril Lisinopril kidney issues Drug Allergy A ctive Motrin kidney issues Drug Allergy Act kelin Results Component Value Reference Range Notes HEMOGLOBIN A1C (GLYCOHEMOGLO BIN) Reviewed date:12/16/2024 09:12:34 AM Interpretation: Performing Lab: Notes/Report: HEMOGLOBIN A1C % (HH) 8.5 Reason For Referral No Information Medications Medication SIG (Take, Route, Frequency, Duration) Notes Start Date End Date Status oxyBUTYnin Not-Takin g Tresiba 40 units Not -Taking Mounjaro Not-Taking Ketoconazole 2 % 1 application to affected area Externally Once a day for 30 days 04/14/2019 Not-Taking Extra Depth Orthopedic Shoes (1 Pair) with Customized Heat Molded Multidensity Innersoles (3 Pair) as directed Dx: NIDDM/Polyneuropath y (E11.42), Hammertoe Foot Deformity (M20.41,M20.42), Preulcerative Skin Lesion(s) (L85.1 09/17/2023 Active Victoza 1.8 units Active Victoza 18 MG/3ML Subcutaneous for 20 Days Active glipiZIDE ER 5 MG 1 tablet Orally Once a day Active amLODIPine Besylate 10 MG 1 tablet Orall y Once a day Not-Taking Fluoxetine Active Victoza 1.5 units No t-Taking Fesoterodine Fumarate 4mg Active Victoza Not-Taking Tamsulosin HCl 0.4 MG 1 capsule Orally Once a day for 30 day(s) Not-Taking Alfuzosin HCl Not-Ta jessie Spironolactone Activ e PROzac 40 MG 1 capsule Orally Once a day Active Myrbetriq Active Basaglar KwikPen 100 UNIT/ML Subcutaneous Not-Taking Multivitamin Adult A ctive Penicillin Not-Takin g metFORMIN HCl 1000 MG 1 tablet with meal s Orally Twice a day Active Januvia 100 MG 1 tablet Orally Once a day Not-Taking Losartan Potassium-HCTZ 100-25 MG 2 tablets Orally Once a day Active Victoza 18 MG/3ML as directed Subcutaneous Not-Taking Gold [place]ham Ultimate 3-30 % as directed Externally Active Tresiba FlexTouch 100 UNIT/ML 50 units Subcutaneous Not-Taking Vitamin D3 Active amLODIPine Besylate 10 MG Oral for 90 Days Active Tylenol Active Testosterone 50 MG/5GM (1%) Transdermal for 30 Days Not-Taking Toviaz Active Testosterone 50 MG/5GM (1%) APPLY 1 PACKET DAILY TRANSDERMALLY TO SHOULDER AND RUB IN UNTIL DRY Transdermal for 30 Days Active busPIRone HCl Active Tresiba 100 UNIT/ML as directed 80 units a day Active Testosterone 50 MG/5GM (1%) Transdermal for 30 Days Active Atorvastatin Calcium 10 MG 1 tablet Orally Once a day Active Irbesartan-hydroCHLOROthi azide 300-12.5 MG Oral for 90 Days Active Aspirin EC prn Active hydroCHLOROthiazide Not-Taking Immunizations Vaccine Route Administration Date Status Comme nts COVID-19 Amrit & Amrit/Benton Unknown 04/10/2021 A dministered Influenza Unknown 08/26/2017 Administered Influenza Unknown 08/09/2018 Others Influenza Unknown 08/12/2018 Administered Influenza Unknown 08/09/2019 Administered Influenza Unknown 07/10/2020 Administered Social History Tobacco Use: Social History Observation [...] ast year? No Points 0 Interpretation Negative Problems Problem Type SNOMED Code ICD Code Onset Dates Problem Status W/U Status Risk Notes Problem Acquired hammer toe of right foot (6476347255045157 ) Other hammer toe(s) (acquired), right foot (M20.41) Active confirmed Response to treatment, Improvemen t Problem Acquired hammer toe of left foot (7145499776133996 ) Other hammer toe(s) (acquired), left foot (M20.42) Active confirmed Response to treatment, Improvemen t Problem Polyneuropathy due to type 2 diabetes mellitus (491809493) Type 2 diabetes mellitus with diabetic polyneuropathy (E11.42) Active confirmed Vital Signs Blood pressure diastolic 80 mm Hg 12/16/2024 Height 5ft 11in in 12/16/2024 Blood pressure systolic 120 mm Hg 12/16/2024 Weight 291 lbs 12/16/2024 BMI 40.58 kg/m2 12/16/2024 Procedures Procedure Date Ordered Date Performed Result Body Sit e 92685-DZEWLZJ NAIL, 6 OR MORE 02/04/2024 N/A 99003-Rwvojjxm Plate 02/04/2024 N/A 88940-Dwafmuap Plate Each Additional 02/04/2024 N/A 96878-NKPL SKIN LESIONS, OVER 4 02/04/2024 N/A 02076-BCQDPYT NAIL, 6 OR MORE 04/14/2024 N/A 49758-Xpxubgdw Plate 04/14/2024 N/A 28669-Bmpasfdm Plate Each Additional 04/14/2024 N/A 39240-GZNS SKIN LESIONS, OVER 4 04/14/2024 N/A 45710-LMLTQMG NAIL, 6 OR MORE 06/23/2024 N/A 81847-Nvizomho Plate 06/23/2024 N/A 30186-Mekqsypl Plate Each Additional 06/23/2024 N/A 77184-EMBI SKIN LESIONS, OVER 4 06/23/2024 N/A 94844-OLKOXUD NAIL, 6 OR MORE 09/16/2024 N/A 22130-Seysejtr Plate 09/16/2024 N/A 92713-Zlucctcy Plate Each Additional 09/16/2024 N/A 06470-NVNT SKIN LESIONS, OVER 4 09/16/2024 N/A 63392-WPQZXHT NAIL, 6 OR MORE 12/16/2024 N/A 78964-Ooctowoy Plate 12/16/2024 N/A 55575-Xqqspsnf Plate Each Additional 12/16/2024 N/A 76135-OMJQ SKIN LESIONS, OVER 4 12/16/2024 N/A Encounters Encounter Location Date Provider Diagnosis [facility] [address] [place] [phone] 02/04/2024 Sonido Walter Type 2 diabetes mellitus with diabetic polyneuropathy E11.42 ; Tinea unguium B35.1 and Ingrown nail L60.0 [facility] [address] [place] [phone] 04/14/2024 Sonidoadam Walter Type 2 diabetes mellitus with diabetic polyneuropathy E11.42 ; Tinea unguium B35.1 and Ingrown nail L60.0 [facility] [address] [place] [phone] 06/23/2024 Sonidoadam Walter Type 2 diabetes mellitus with diabetic polyneuropathy E11.42 ; Tinea unguium B35.1 and Ingrown nail L60.[address] [phone] 09/16/2024 Sonidoadam Walter Type 2 diabetes mellitus with diabetic polyneuropathy E11.42 ; Tinea unguium B35.1 ; Ingrown nail L60.0 ; Other hammer toe(s) (acquired), right foot M20.41 and Other hammer toe(s) (acquired), left foot M20.[address] [address] 12/16/2024 Sonido Walter Type 2 diabetes mellitus with diabetic polyneuropathy E11.42 ; Tinea unguium B35.1 and Ingrown nail L60.0 Assessments Encounter Date Diagnosis (ICD Code) Assessment Notes Treatment Notes Treatment Clinical Notes Section Notes 02/04/2024 Type 2 diabetes mellitus with diabetic polyneuropathy (ICD-10 - E11.42) 02/04/2024 Tinea unguium (ICD-10 - B35.1) 06/23/2024 Type 2 diabetes mellitus with diabetic polyneuropathy (ICD-10 - E11.42) 06/23/2024 Tinea unguium (ICD-10 - B35.1) 04/14/2024 Type 2 diabetes mellitus with diabetic polyneuropathy (ICD-10 - E11.42) 04/14/2024 Tinea unguium (ICD-10 - B35.1) 09/16/2024 Type 2 diabetes mellitus with diabetic polyneuropathy (ICD-10 - E11.42) 09/16/2024 Tinea unguium (ICD-10 - B35.1) 12/16/2024 Type 2 diabetes mellitus with diabetic polyneuropathy (ICD-10 - E11.42) 12/16/2024 Tinea unguium (ICD-10 - B35.1) 12/16/2024 Ingrown nail (ICD-10 - L60.0) 09/16/2024 Ingrown nail (ICD-10 - L60.0) 04/14/2024 Ingrown nail (ICD-10 - L60.0) 06/23/2024 Ingrown nail (ICD-10 - L60.0) 02/04/2024 Ingrown nail (ICD-10 - L60.0) 09/16/2024 Other hammer toe(s) (acquired), right foot (ICD-10 - M20.41) Patient Educated with: DIABETIC FOOT CARE INSTRUCTIONS. pdf (DIABETIC FOOT CARE INSTRUCTIONS. pdf) 09/16/2024 Other hammer toe(s) (acquired), left foot (ICD-10 - M20.42) 12/16/2024 Other Plan Of Treatment Pending Test Test Name Order Date 44597-XAAABNS NAIL, 6 OR MORE 08/31/2017 83219-RHSLUIV NAIL, 6 OR MORE 11/16/2017 11647-CSXPNHF NAIL, 6 OR MORE 02/08/2018 19653-IBNBUBZ NAIL, 6 OR MORE 05/10/2018 61644-FWCEEAF NAIL, 6 OR MORE 08/09/2018 61327-DIRQWEX NAIL, 6 OR MORE 11/18/2018 83036-TFCLMAI NAIL, 6 OR MORE 01/27/2019 43794-DFNXSPD NAIL, 6 OR MORE 04/14/2019 19526-RLJVUAB NAIL, 6 OR MORE 06/22/2019 10843-IYARTRW NAIL, 6 OR MORE 09/01/2019 94945-BNOECHB NAIL, 6 OR MORE 11/14/2019 15620-JHETKMR NAIL, 6 OR MORE 01/25/2020 75227-NCFXYNG NAIL, 6 OR MORE 04/05/2020 10680-NZSZIIJ NAIL, 6 OR MORE 06/14/2020 32577-OIJKTNC NAIL, 6 OR MORE 09/15/2020 70534-PIIAHKP NAIL, 6 OR MORE 11/29/2020 54614-BNSJHQD NAIL, 6 OR MORE 02/07/2021 83992-NWTQLRW NAIL, 6 OR MORE 04/25/2021 40140-JUNEZWP NAIL, 6 OR MORE 07/17/2021 69272-KKCBAVF NAIL, 6 OR MORE 09/19/2021 10911-TLTTSFC NAIL, 6 OR MORE 12/25/2021 70170-ACSQHNK NAIL, 6 OR MORE 03/06/2022 14282-FVKBKYB NAIL, 6 OR MORE 06/09/2022 37967-XEAQOMZ NAIL, 6 OR MORE 08/28/2022 03982-OLMNZSU NAIL, 6 OR MORE 11/19/2022 93554-WMYQTLR NAIL, 6 OR MORE 01/28/2023 81834-RQMLHXL NAIL, 6 OR MORE 04/15/2023 54175-DEQDHVW NAIL, 6 OR MORE 2023 26759-EXGDLLT NAIL, 6 OR MORE 09/17/2023 69242-ZSDARNZ NAIL, 6 OR MORE 11/25/2023 86090-XKGCXMP NAIL, 6 OR MORE 02/04/2024 30410-QPFDPGE NAIL, 6 OR MORE 04/14/2024 30673-SSBXSGB NAIL, 6 OR MORE 06/23/2024 72784-QWRSIYA NAIL, 6 OR MORE 09/16/2024 20242-JNOHQHL NAIL, 6 OR MORE 12/16/2024 72621-Oymgbvka Plate 12/16/2024 59002-Kvviifyg Plate 09/16/2024 77612-Gultcysc Plate 09/01/2019 98821-Bzesgrmh Plate 04/14/2019 42232-Lustvyhs Plate 06/23/2024 28115-Rszlinoa Plate 04/14/2024 27869-Wvvmomhg Plate 02/04/2024 56647-Nglxilbj Plate 11/25/2023 36502-Ajxhyckw Plate 09/17/2023 86404-Iuiydsbn Plate 2023 38459-Jfwqxhth Plate 04/15/2023 40580-Nvuebutf Plate 01/28/2023 56315-Egkuadsh Plate 11/19/2022 03932-Fwjqynho Plate 08/28/2022 15173-Vzcdxsmf Plate 06/09/2022 29955-Uqkidqrj Plate 03/06/2022 78437-Tumjjkad Plate 12/25/2021 55824-Gfwiajrl Plate 09/19/2021 97007-Thkclbwn Plate 07/17/2021 90961-Kejzwvmq Plate 04/25/2021 81827-Jrhyedql Plate 02/07/2021 37971-Oagevrmk Plate 11/29/2020 09200-Bpnfltsw Plate 09/15/2020 90724-Gfeezoiq Plate 06/14/2020 30273-Biwjluzq Plate 04/05/2020 23263-Laipxpju Plate 01/25/2020 97845-Pjsubcag Plate 11/14/2019 07502-Slqmqfii Plate 06/22/2019 83179-Zmvmwlmi Plate 01/27/2019 32077-Pjcscptb Plate 08/31/2017 31974-Pdznmrcq Plate 11/18/2018 83537-Pniftjma Plate 08/09/2018 60162-Vdsynvdi Plate 05/10/2018 88741-Azvyqwbz Plate 02/08/2018 32200-Lxavaxlh Plate 11/16/2017 29188-Ygqmkcov Plate Each Additional 08/2019 57828-Xxwaaqpu Plate Each Additional 66056-Vpeamuiz Plate Each Additional 04/2019 89493-Xqlckkbm Plate Each Additional 80914-Meygpofj Plate Each Additional 04/2020 83320-Fvlndsxc Plate Each Additional 17689-Onztmmvo Plate Each Additional 73072-Rwqnrnxc Plate Each Additional 04/2020 44569-Wsoripje Plate Each Additional 05/2020 15510-Mwhewkhj Plate Each Additional 64350-Fzigzppc Plate Each Additional 11/2020 32678-Wplojanj Plate Each Additional 16865-Rirbyiwx Plate Each Additional 06/2021 36452-Ffouxfub Plate Each Additional 09/2021 66787-Wljfmwfr Plate Each Additional 70026-Eugfzoam Plate Each Additional 84542-Jmnxusdm Plate Each Additional 11/2021 20552-Xyzoqoxv Plate Each Additional 67151-Kteuhqak Plate Each Additional 09/2023 25730-Jcbwmihm Plate Each Additional 97608-Poswrxcu Plate Each Additional 05/2023 44658-Tlvqzxgx Plate Each Additional 21438-Hzgvvbtl Plate Each Additional 07/2023 08998-Ucqlooit Plate Each Additional 05807-Ujyyaifs Plate Each Additional 30907-Asvtnywu Plate Each Additional 04/2024 78396-Wgrgovrw Plate Each Additional 10399-Jooyutvl Plate Each Additional 78905-Vlodyorz Plate Each Additional 06/2024 61850-Qfiojbqs Plate Each Additional 05/2025 07714-OFFU SKIN LESIONS, OVER 4 12/16/19 25 17768-UGTG SKIN LESIONS, OVER 4 09/16/20 24 83681-AWHD SKIN LESIONS, OVER 4 06/23/20 24 41260-SFXT SKIN LESIONS, OVER 4 04/14/20 24 45462-BAIQ SKIN LESIONS, OVER 4 02/04/20 24 85971-QSNQ SKIN LESIONS, OVER 4 11/25/19 24 63247-LREO SKIN LESIONS, OVER 4 09/17/20 23 18510-DTTN SKIN LESIONS, OVER 4 07/01/20 23 53017-HHDH SKIN LESIONS, OVER 4 04/15/20 23 64032-JCRO SKIN LESIONS, OVER 4 01/29/20 23 52213-WSTF SKIN LESIONS, OVER 4 11/19/19 23 92906-MPZV SKIN LESIONS, OVER 4 08/28/20 79427-NLSH SKIN LESIONS, OVER 4 06/09/20 65156-YRZK SKIN LESIONS, OVER 4 03/06/20 28084-CVCN SKIN LESIONS, OVER 4 12/25/19 01456-TPFI SKIN LESIONS, OVER 4 09/19/20 59190-QDHX SKIN LESIONS, OVER 4 07/17/20 06217-EFHI SKIN LESIONS, OVER 4 04/25/20 21 43667-DKOT SKIN LESIONS, OVER 4 02/08/20 61703-UZZS SKIN LESIONS, OVER 4 01/21/20 21 09122-SLNL SKIN LESIONS, 2 TO 4 09/15/20 20 67603-VAHY SKIN LESIONS, 2 TO 4 06/14/20 20 51400-POBU SKIN LESIONS, 2 TO 4 04/05/20 20 69745-ILVZ SKIN LESIONS, 2 TO 4 01/25/20 20 22657-SUFB SKIN LESIONS, 2 TO 4 11/14/19 20 51450-XVZC SKIN LESIONS, 2 TO 4 09/01/20 19 Next Appt Details Provider Name:Sonido Walter , 03/14/2025 03:45:00 PM, [address] [place], [address], Insurance Providers Payer Name Payer Address Payer Phone Subscriber Number Group Number Insured Name Patient Relationship to Insured Coverage Start Date Coverage End Date [facility] [id number] [place] [address] [phone] [id number] Steven Lockhart Self - patient is the insured Medical (General) History Medical History History ICD Code Anxiety Arthritis Back,Hip,and Knee pain CAD (Cholesterol) Depression Diabetes mellitus High blood pressure Kidney disease Psychiatric disorder Warts Measles Mumps Chicken pox Surgical History Surgery Date(Month/Year) polyp removal 2016 oral surgery 08/2018 teeth removed 12/2019 prostate surgery 07/08/21 laser eye treatment. pressure in eyes Hospitalization History Reason Date(Month/Year) [facility]- covid 05/2022 [facility], prostate surgery 07/08/21 [facility]- bladder infection 10/08/2020 [facility] Colonoscopy 07/2020 [facility] F[facility] on the [facility]aires 2015 [facility] Question Covid 01/2020 [facility] three days Bladder infection 02/2019
== END 2025-02-01 16:15 | disposition home or self-care (01) ==
PROVIDERS: PCP Internal Medicine; Visit Provider Urology
DX: Z13.9 Encounter for screening, unspecified (principal)

== ENCOUNTER → 2025-02-01 14:43 | Outpatient (BNVA) | payer BC, SELFPAY | PROVIDERS: PCP Internal Medicine; Visit Provider Urology | DX: N32.81 Overactive bladder (principal); E29.1 Testicular hypofunction; R35.1 Nocturia; R39.15 Urgency of urination | CPT/HCPCS: 81003 ==

== ENCOUNTER 2025-07-19 09:36 | Outpatient (REF) | payer BC, SELFPAY ==
[2025-07-19 10:39] LABS: Hematocrit 38.2 % (42.0-52.0); Hemoglobin 13.1 g/dl (14.0-18.0); Mean Corpuscular HGB Conc 34.3 g/dl (31.0-36.0); Mean Corpuscular Hemoglobin 28.9 pg (27.0-33.0); Mean Corpuscular Volume 84.3 fL (80.0-98.0); NRBC Abs Auto 0.000 X10*3/uL (0.0-0.012); NRBC Pct Auto 0.0 /100WBC (0.0-0.2); Platelet Count 247 X10*3/uL (160-400); Red Blood Count 4.53 X10*6/uL (4.60-5.80); White Blood Count 9.5 X10*3/uL (4.8-10.8)
--- OUTSIDE RECORDS SUMMARY | 2025-07-19 11:25 | XMS_ITS | Encounter Summary ---
Author Organization [facility] Address [address] [facility] [address] [place] [address] Phone Care Team Providers Care Inventory Specialist Name Role Phone Shana Chacon MD Primary Care Provider [phone] Reason for Visit * Reason Onset Date Comments Medication Refill 07/17/2025 Encounter Details Date Type Department Care Team (Late st Contact Info) Description 07/17/2025 Refill [facility] [address] [place] [address] Shavon Grey PA-C [address] [place] [address] [email or web address] Medication Refill Social History Tobacco Use Types Packs/Day Years Used Date Smoking Tobacco: Never Smokeless Tobacco: Never Alcohol Use Standard Drinks/Week Comments Yes 2 (1 standard drink = 0.6 oz pur e alcohol) Education Answer Date Recorded Are you interested in more education? Not on teri e 03/07/2023 Are you concerned about learning? Not on file 03/07/2023 No 03/07/2023 No 03/07/2023 Digital Access Answer Date Recorded No 04/07/2023 No 04/07/2023 Reliable internet access at home? Not on file 04/07/2023 Device with a working camera? Not on file Sex and Gender Information Value Date Recorded Sex Assigned at Not on file Legal Sex Male 9:57 AM EST Gender Identity Not on file Sexual Orientation Not on file documented as of this encounter Progress Notes * Barbara Wood MA - 07/17/2025 8:52 AM EDT At least one Rx below has no protocol and needs review. Rx Care Gap Status - Instructions for Clinical Staff (prescriber discretion applies): > Mismatch review guide > N/a - No action needed Visit Info Last visit: 06/21/2025 Kiarra Fox MD - Endocrinology [facility] > Requested f/u: Return in about 7 months (around 01/05/2026). Upcoming visit: 09/26/2025 Shavon Grey PA-C - Endocrinology [facility] ACTIONS TAKEN BY Barbara Wood MA - Criteria met. Diabetes Rx Protocol (on Diabetes Registry) - liraglutide Criteria met; renew for up to 12 months. Visit in the past 14 months: Yes Clinical criteria: - BMP within past year: Yes - A1c within past 6 months: Yes - Lipid panel within past year: Yes (LDL 69 on 02/21/2025) - Urine microalbumin within past year or on LUC/ARB: Yes Rx(s) without protocol Renewal is at prescriber discretion. - pen needle, diabetic Lab Results Component Value Date SODIUM 135 06/21/2025 POTASSIUM 4.7 06/21/2025 CHLORIDE 99 06/21/2025 CO2 23 06/21/2025 BUN 26 (H) 06/21/2025 CREATININE 1.10 06/21/2025 EGFR 71 06/21/2025 Lab Results Component Value Date HEMOGLOBIN A1C 7.4 (H) 06/21/2025 MICROALB/CRE RATIO 20.7 (H) 02/21/2025 URINE MICROALBUMIN 2.5 (H) 02/21/2025 Lab Results Component Value Date LDL 69 02/21/2025 HDL 36 02/21/2025 CARDIAC RISK RATIO 3.8 02/21/2025 TRIGLYCERIDES 167 (H) 02/21/2025 CHOLESTEROL 138 02/21/2025 * Emmie Montejo - 07/17/2025 8:48 AM EDT Patient requesting a refill of their RX liraglutide (VICTOZA) 0.6 mg/0.1 mL (18 mg/3 mL) PnIj and their RX BD NINI 2ND GEN PEN NEEDLE 32 gauge x Ndle Maryann / Yfn documented in this encounter Plan of Treatment Upcoming Encounters Date Type Department Care Team (Late st Contact Info) Description 09/26/2025 9:40 AM EST Office Visit [facility] [address] [place] [address] Shavon Grey PA-C [address] [place] [address] 01/02/2026 8:20 AM EST Office Visit [facility] [address] [place] [address] [place] [address] Kiarra Fox MD [address] [place] [phone] documented as of this encounter Visit Diagnoses Diagnosis Type 2 diabetes mellitus with peripheral neuropathy documented in this encounter Care Teams Inventory Specialist Relationship Specialty Start Date End Date Shana Chacon MD [address] [place] [address] [address] [place] [address] PCP - General Internal Medicine 02/27/23 documented as of this encounter Additional Source Comments The information contained in this document represents components of the legal health record. It is not the complete legal health record.[facility]
--- OUTSIDE RECORDS SUMMARY | 2025-07-19 11:25 | XMS_ITS | Patient Health Record ---
Author Organization [facility] Address [address] [place] [address] Care Team Providers Care Gravity Manager Name Role Phone Shana Chacon MD Primary Care Provider Sonido Nielson Unavailable [phone] Allergies Allergen (clinical drug ingredient) Drug/Non Drug [...] Lab: Notes/Report: HEMOGLOBIN A1C % (HH) 8.5 HEMOGLOBIN A1C (GLYCOHEMOGLO BIN) Reviewed date:06/16/2025 08:30:07 AM Interpretation: Performing Lab: Notes/Report: HEMOGLOBIN A1C % (HH) 8.2 Reason For Referral No Information Medications Medication SIG (Take, Route, Frequency, Duration) Notes Start Date End Date Status Tresiba 100 UNIT/ML as directed Subcutaneous daily 60 units Active Testosterone 50 MG/5GM (1%) Transdermal; Duration: 30 Days Active Testosterone 50 MG/5GM (1%) Transdermal; Duration: 30 Days Not-Taking Irbesartan-hydroCHLOROthi azide 300-12.5 MG Oral; Duration: 90 Days Active hydroCHLOROthiazide Not-Taking Victoza 1.8 units Active Basaglar KwikPen 100 UNIT/ML Subcutaneous Not-Taking Vitamin D3 Active Penicillin Not-Takin g Atorvastatin Calcium 10 MG 1 tablet Orally Once a day Active Extra Depth Orthopedic Shoes (1 Pair) with Customized Heat Molded Multidensity Innersoles (3 Pair) as directed Dx: NIDDM/Polyneuropath y (E11.42), Hammertoe Foot Deformity (M20.41,M20.42), Preulcerative Skin Lesion(s) (L85.1 09/17/2023 Not-Taking Aspirin EC prn Active Victoza 18 MG/3ML Subcutaneous; Duration: 20 Days Active Metoprolol Succinate Active amLODIPine Besylate 10 MG Oral; Duration : 90 Days Active Testosterone 50 MG/5GM (1%) APPLY 1 PACKET DAILY TRANSDERMALLY TO SHOULDER AND RUB IN UNTIL DRY Transdermal; Duration: 30 Days Active Tylenol Active Januvia 100 MG 1 tablet Orally Once a day Not-Taking Toviaz Active Victoza 18 MG/3ML as directed Subcutaneous Not-Taking Tresiba FlexTouch 100 UNIT/ML 50 units Subcutaneous Not-Taking Fesoterodine Fumarate 4mg Active busPIRone HCl Active metFORMIN HCl 1000 MG 1 tablet with meal s Orally Twice a day Active Victoza Not-Taking Losartan Potassium-HCTZ 100-25 MG 2 tablets Orally Once a day Active Tamsulosin HCl 0.4 MG 1 capsule Orally Once a day; Duration: 30 day(s) Not-Taking [place] Ultimate 3-30 % as directed Externally Active Alfuzosin HCl Not-Ta jessie glipiZIDE ER 5 MG 1 tablet Orally Once a day Active oxyBUTYnin Not-Takin g Spironolactone Activ e PROzac 40 MG 1 capsule Orally Once a day Active Myrbetriq Active amLODIPine Besylate 10 MG 1 tablet Orall y Once a day Not-Taking Multivitamin Adult A ctive Victoza 1.5 units No t-Taking Fluoxetine Active Tresiba 40 units Not -Taking Mounjaro Not-Taking Ketoconazole 2 % 1 application to affected area Externally Once a day; Duration: 30 days 04/14/2019 Not-Taking Immunizations Vaccine Route Administration Date Status Comme nts Influenza Unknown 08/26/2017 Administered Influenza Unknown 08/09/2018 Others Influenza Unknown 08/12/2018 Administered Influenza Unknown 08/09/2019 Administered Influenza Unknown 07/10/2020 Administered Influenza Unknown 07/11/2024 Administered COVID-19 Amrit & Amrit/Benton Unknown 04/10/2021 A dministered Social History Tobacco Use: Social History Observation [...] Problem Acquired hammer toe of right foot (9910491262810703 ) Other hammer toe(s) (acquired), right foot (M20.41) Active confirmed Response to treatment, Improvemen t Problem Acquired hammer toe of left foot ([id number] ) Other hammer toe(s) (acquired), left foot (M20.42) Active confirmed Response to treatment, Improvemen t Problem Polyneuropathy due to type 2 diabetes mellitus (713462326) Type 2 diabetes mellitus with diabetic polyneuropathy (E11.42) Active confirmed Vital Signs Blood pressure diastolic 65 mm Hg 06/16/2025 Height 5ft 11in in 06/16/2025 Blood pressure systolic 130 mm Hg 06/16/2025 Weight 291 lbs 06/16/2025 BMI 40.58 kg/m2 06/16/2025 Procedures Procedure Date Ordered Date Performed Result Body Sit e 55203-TCQZELX NAIL, 6 OR MORE 09/16/2024 N/A 99469-Zguyrckw Plate 09/16/2024 N/A 85669-Hwiptgbi Plate Each Additional 09/16/2024 N/A 60519-CHNB SKIN LESIONS, OVER 4 09/16/2024 N/A 65507-QHKQAVG NAIL, 6 OR MORE 12/16/2024 N/A 21468-Dcnwgdps Plate 12/16/2024 N/A 65535-Yiafrbuf Plate Each Additional 12/16/2024 N/A 20367-OZYT SKIN LESIONS, OVER 4 12/16/2024 N/A 41056-DKTKLSY NAIL, 6 OR MORE 03/14/2025 N/A 89247-Myntfklq Plate 03/14/2025 N/A 07160-Txuvwbcq Plate Each Additional 03/14/2025 N/A 25568-OVHB SKIN LESIONS, OVER 4 03/14/2025 N/A 54692-YRINGMB NAIL, 6 OR MORE 06/16/2025 N/A 28044-Hcxtweqk Plate 06/16/2025 N/A 62211-Vqsksrjc Plate Each Additional 06/16/2025 N/A 46381-BHCS SKIN LESIONS, OVER 4 06/16/2025 N/A Encounters Encounter Location Date Provider Diagnosis [address] [address] 09/16/2024 Sonido Walter Type 2 diabetes mellitus with diabetic polyneuropathy E11.42 ; Tinea unguium B35.1 ; Ingrown nail L60.0 ; Other hammer toe(s) (acquired), right foot M20.41 and Other hammer toe(s) (acquired), left foot M20.[address] [address] 12/16/2024 Sonido Walter Type 2 diabetes mellitus with diabetic polyneuropathy E11.42 ; Tinea unguium B35.1 and Ingrown nail L60.[address] [address] 03/14/2025 Sonidoadam Walter Type 2 diabetes mellitus with diabetic polyneuropathy E11.42 ; Tinea unguium B35.1 and Ingrown nail L60.[address] [address] 06/16/2025 Sonido Walter Type 2 diabetes mellitus with diabetic polyneuropathy E11.42 ; Tinea unguium B35.1 ; Other hammer toe(s) (acquired), right foot M20.41 ; Other hammer toe(s) (acquired), left foot M20.42 and Ingrown nail L60.0 Assessments Encounter Date Diagnosis (ICD Code) Assessment Notes Treatment Notes Treatment Clinical Notes Section Notes 09/16/2024 Type 2 diabetes mellitus with diabetic polyneuropathy (ICD-10 - E11.42) 09/16/2024 Tinea unguium (ICD-10 - B35.1) 03/14/2025 Type 2 diabetes mellitus with diabetic polyneuropathy (ICD-10 - E11.42) 03/14/2025 Tinea unguium (ICD-10 - B35.1) 12/16/2024 Type 2 diabetes mellitus with diabetic polyneuropathy (ICD-10 - E11.42) 12/16/2024 Tinea unguium (ICD-10 - B35.1) 06/16/2025 Type 2 diabetes mellitus with diabetic polyneuropathy (ICD-10 - E11.42) 06/16/2025 Tinea unguium (ICD-10 - B35.1) 12/16/2024 Ingrown nail (ICD-10 - L60.0) 03/14/2025 Ingrown nail (ICD-10 - L60.0) 06/16/2025 Other hammer toe(s) (acquired), right foot (ICD-10 - M20.41) Patient Educated with: DIABETIC FOOT CARE INSTRUCTIONS. pdf (DIABETIC FOOT CARE INSTRUCTIONS. pdf) 09/16/2024 Ingrown nail (ICD-10 - L60.0) 09/16/2024 Other hammer toe(s) (acquired), right foot (ICD-10 - M20.41) Patient Educated with: DIABETIC FOOT CARE INSTRUCTIONS. pdf (DIABETIC FOOT CARE INSTRUCTIONS. pdf) 06/16/2025 Other hammer toe(s) (acquired), left foot (ICD-10 - M20.42) 06/16/2025 Ingrown nail (ICD-10 - L60.0) 09/16/2024 Other hammer toe(s) (acquired), left foot (ICD-10 - M20.42) 12/16/2024 Other 03/14/2025 Other Plan Of Treatment Pending Test Test Name Order Date 26023-SRQVDYW NAIL, 6 OR MORE 08/31/2017 88186-GDZPNPG NAIL, 6 OR MORE 11/16/2017 52608-SYPHLXG NAIL, 6 OR MORE 02/08/2018 87750-IXQHEVI NAIL, 6 OR MORE 05/10/2018 90074-NGWBVWX NAIL, 6 OR MORE 08/09/2018 17661-IBEIMIL NAIL, 6 OR MORE 11/18/2018 66490-EEFQHOK NAIL, 6 OR MORE 01/27/2019 64978-NIQQJVJ NAIL, 6 OR MORE 04/14/2019 07305-DTHGGNF NAIL, 6 OR MORE 06/22/2019 89745-CIKVIOM NAIL, 6 OR MORE 09/01/2019 01785-OKCWPXE NAIL, 6 OR MORE 11/14/2019 50890-QBQXSLA NAIL, 6 OR MORE 01/25/2020 11744-PQQEWGI NAIL, 6 OR MORE 04/05/2020 89848-FIZQPWU NAIL, 6 OR MORE 06/14/2020 77065-WRIPJUY NAIL, 6 OR MORE 09/15/2020 22055-ERGZPQT NAIL, 6 OR MORE 11/29/2020 16559-IZGOGTK NAIL, 6 OR MORE 02/07/2021 72291-PPCDAWP NAIL, 6 OR MORE 04/25/2021 40885-KXIJOGM NAIL, 6 OR MORE 07/17/2021 07276-WQPFLDM NAIL, 6 OR MORE 09/19/2021 59936-QCVSMWT NAIL, 6 OR MORE 12/25/2021 84881-UAYDKAS NAIL, 6 OR MORE 03/06/2022 50229-IEOWDFC NAIL, 6 OR MORE 06/09/2022 61763-VKXXEQE NAIL, 6 OR MORE 08/28/2022 81457-ZEXCHLF NAIL, 6 OR MORE 11/19/2022 01476-AJAHCXM NAIL, 6 OR MORE 01/28/2023 25966-AOGMMOF NAIL, 6 OR MORE 04/15/2023 17223-XPCFHHG NAIL, 6 OR MORE 2023 72471-IDHPKNV NAIL, 6 OR MORE 09/17/2023 15595-VRGPEOT NAIL, 6 OR MORE 11/25/2023 38819-CRLPUDI NAIL, 6 OR MORE 02/04/2024 14161-OAAEVMK NAIL, 6 OR MORE 04/14/2024 33196-JBVQFKK NAIL, 6 OR MORE 06/23/2024 42252-BBVKTTU NAIL, 6 OR MORE 09/16/2024 65994-DLWNDNE NAIL, 6 OR MORE 12/16/2024 97860-YMDXJTZ NAIL, 6 OR MORE 03/14/2025 93550-HXBHJTN NAIL, 6 OR MORE 06/16/2025 60350-Sfgesevq Plate 09/01/2019 07286-Qhqcfxwl Plate 03/14/2025 12143-Livlhvrw Plate 12/16/2024 70000-Pmdmnfnb Plate 09/16/2024 02718-Fxxmuawo Plate 06/23/2024 56301-Wlvjewut Plate 04/14/2024 43070-Pcezjwcq Plate 02/04/2024 50462-Lognzcww Plate 11/25/2023 90596-Qbqtvadl Plate 09/17/2023 80526-Zmiyfkey Plate 2023 62863-Uvbncple Plate 04/15/2023 91199-Hrowqbpa Plate 01/28/2023 84062-Rbhdxipq Plate 11/19/2022 27472-Vfpybolq Plate 08/28/2022 73188-Jhhmoaui Plate 06/09/2022 54265-Yrjsfqsh Plate 03/06/2022 85192-Gxdoeukw Plate 12/25/2021 79396-Ylkplqur Plate 09/19/2021 71332-Mlmqqpiv Plate 07/17/2021 67878-Plffmwsk Plate 04/25/2021 00759-Chjonfgq Plate 02/07/2021 63233-Busrepmb Plate 11/29/2020 59715-Amlhgdfj Plate 09/15/2020 70463-Ogupzeqv Plate 06/14/2020 98771-Uopyljfi Plate 04/05/2020 79809-Nxdpaanc Plate 01/25/2020 14752-Yfjolfqo Plate 11/14/2019 40023-Apgkorpm Plate 06/22/2019 92726-Jrigaxhk Plate 01/27/2019 64491-Imcxgggh Plate 08/31/2017 46328-Ianmgeem Plate 11/18/2018 04990-Nvmzttnc Plate 08/09/2018 57132-Tlzepitk Plate 05/10/2018 59961-Efalltbj Plate 02/08/2018 87946-Zckyzrol Plate 11/16/2017 22138-Zwefoapn Plate 06/16/2025 33061-Qpeygayr Plate 04/14/2019 29833-Xgprmzho Plate Each Additional 06/2025 76555-Ikcdcdxn Plate Each Additional 08/2019 97405-Ewwwgvcv Plate Each Additional 50008-Cynamvqv Plate Each Additional 04/2019 03064-Bgyorapc Plate Each Additional 42416-Mrtpxato Plate Each Additional 04/2020 25539-Ulrzjiny Plate Each Additional 89278-Mrwoqyoq Plate Each Additional 29058-Sxnikjuy Plate Each Additional 04/2020 73540-Nftymsww Plate Each Additional 05/2020 84225-Uqxyeaxm Plate Each Additional 75866-Zvqqorva Plate Each Additional 11/2020 66882-Kjfighib Plate Each Additional 01683-Nyemojbf Plate Each Additional 06/2021 38357-Eqlqfbke Plate Each Additional 09/2021 16853-Ryiafakg Plate Each Additional 90472-Exwzsrmm Plate Each Additional 60308-Ojltmogc Plate Each Additional 11/2021 82228-Fcflltsg Plate Each Additional 04986-Fipwzops Plate Each Additional 09/2023 94326-Pavcxcmo Plate Each Additional 99685-Ubqohrvf Plate Each Additional 05/2023 63349-Arkjjeiw Plate Each Additional 37038-Ntfrftzz Plate Each Additional 07/2023 55454-Hlxbrdmg Plate Each Additional 07127-Qqteyzdw Plate Each Additional 73757-Xfkpxvhf Plate Each Additional 04/2024 71864-Sgmqbtkj Plate Each Additional 21001-Tdlbnjvg Plate Each Additional 06/2024 38437-Iiguhrzx Plate Each Additional 05/2025 36371-Zvojaoeh Plate Each Additional 04/2025 61410-Dnmqmbkb Plate Each Additional 25677-SDQT SKIN LESIONS, OVER 4 06/16/20 25 89077-RQMX SKIN LESIONS, OVER 4 03/14/20 45969-QJIZ SKIN LESIONS, OVER 4 12/16/19 25 27596-ZLXV SKIN LESIONS, OVER 4 09/16/20 24 25778-JVNQ SKIN LESIONS, OVER 4 06/23/20 24 38540-HZIL SKIN LESIONS, OVER 4 04/14/20 24 57044-OVJF SKIN LESIONS, OVER 4 02/04/20 24 00624-QHKM SKIN LESIONS, OVER 4 11/25/19 24 72382-THLA SKIN LESIONS, OVER 4 09/17/20 23 45997-BNPH SKIN LESIONS, OVER 4 07/01/20 23 67991-QQUV SKIN LESIONS, OVER 4 04/15/20 23 65388-VIAR SKIN LESIONS, OVER 4 01/29/20 23 05315-GUOT SKIN LESIONS, OVER 4 11/19/19 15352-GRWS SKIN LESIONS, OVER 4 08/28/20 98384-ESPX SKIN LESIONS, OVER 4 06/09/20 30493-VYSA SKIN LESIONS, OVER 4 03/06/20 16766-TUAT SKIN LESIONS, OVER 4 12/25/19 31213-YKWE SKIN LESIONS, OVER 4 09/19/20 28829-DWBM SKIN LESIONS, OVER 4 07/17/20 66346-MXZR SKIN LESIONS, OVER 4 04/25/20 72404-SLNV SKIN LESIONS, OVER 4 02/08/20 00330-CUWS SKIN LESIONS, OVER 4 11/29/19 74071-ITNC SKIN LESIONS, 2 TO 4 09/15/20 19255-NTVY SKIN LESIONS, 2 TO 4 06/14/20 82728-OAJV SKIN LESIONS, 2 TO 4 04/05/20 47971-QWGX SKIN LESIONS, 2 TO 4 01/25/20 86253-SPLF SKIN LESIONS, 2 TO 4 11/14/19 86972-ZROI SKIN LESIONS, 2 TO 4 09/01/20 Next Appt Details Provider Name:Sonido Walter , 10/03/2025 09:00:00 AM, [address] [place] [address], [phone], Insurance Providers Payer Name Payer Address Payer Phone Subscriber Number Group Number Insured Name Patient Relationship to Insured Coverage Start Date Coverage End Date [facility] [id number] [place] [address] [phone] [id number] Steven Lockhart Self - patient is the insured Medical (General) History Medical History History ICD Code Anxiety Arthritis Back,Hip,and Knee pain CAD (Cholesterol) Depression Diabetes mellitus High blood pressure Kidney disease Psychiatric disorder Warts Measles Mumps Chicken pox Surgical History Surgery Date(Month/Year) polyp removal 2015 oral surgery 08/2018 teeth removed 12/2019 prostate surgery 07/08/21 laser eye treatment. pressure in eyes Hospitalization History Reason Date(Month/Year) [facility]- covid 05/2022 [facility], prostate surgery 07[facility]08[facility]21 [facility]- bladder infection 10/08[facility]2020 [facility] Colonoscopy 07/2020 [facility] Question Covid 01/2020 [facility] three days Bladder infection 02/2019 [facility] the [facility]aires 2015
--- OUTSIDE RECORDS SUMMARY | 2025-07-19 11:25 | XMS_ITS | Clinical Summary ---
Author Organization [facility] Address [address] [facility] [address] [place] [id number] Phone Care Team Providers Care Pharmacy Technician Assistant Name Role Phone Shana Chacon MD Primary Care Provider [phone] Allergies Active Allergy Reactions Criticality Noted Date Comments Ibuprofen 02/27/2023 Kidney issue Lisinopril 02/27/2023 Kidney issue Tirzepatide Cramps Low 07/17/2023 Increase bg Medications mirabegron (MYRBETRIQ) 50 mg Tb24 Take 50 mg by mouth daily. Active fesoterodine (TOVIAZ) 4 mg Tb24 Take 4 mg by mouth daily. Active therapeutic multivitamin tablet Take 1 tablet by mouth daily. Active atorvastatin (LIPITOR) 10 MG tablet Take 10 mg by mouth nightly at bedtime. at bedtime. 02/07/20 23 Active FLUoxetine (PROZAC) 40 MG capsule Take 120 mg by mouth daily. 01/29/20 23 Active spironolactone (ALDACTONE) 25 MG tablet Take 25 mg by mouth daily. 01/13/20 23 Active busPIRone (BUSPAR) 30 MG tablet Take 30 mg by mouth 2 (two) times a day. Active irbesartan-hydro CHLOROthiazide (AVALIDE) 300-12.5 mg per tablet Take 1 tablet by mouth every morning. 07/27/20 24 Active BD ALCOHOL SWABS PadM USE FOUR TIMES DAILY TO TEST BLOOD SUGAR AND INJECT INSULIN EVERY DAY 400 each 3 09/06/20 24 Active metFORMIN (GLUCOPHAGE-XR) 500 MG 24 hr tabletIndication s:Type 2 diabetes mellitus with peripheral neuropathy Take 4 tablets (2,000 mg total) by mouth daily with dinner. 360 tablet 1 09/06/20 24 Active blood sugar diagnostic (TRUETRACK TEST) Strp strips Test blood sugars 3 times a day 300 strip 3 12/01/19 25 Active testosterone (ANDROGEL) 1 % (50 mg/5 gram) transdermal gel packet Place 2 packets onto the skin daily. 02/03/20 25 Active metoprolol succinate (TOPROL-XL) 50 MG 24 hr tablet Take 1 tablet by mouth every morning. 01/05/20 25 Active amLODIPine (NORVASC) 10 MG tablet Take 10 mg by mouth daily. 02/18/20 25 Active glipiZIDE (GLUCOTROL XL) 5 MG 24 hr tabletIndication s:Type 2 diabetes mellitus with peripheral neuropathy Take 4 tablets (20 mg total) by mouth daily. 360 tablet 1 02/22/20 25 Active TRESIBA FLEXTOUCH U-100 injection penIndications:T ype 2 diabetes mellitus with peripheral neuropathy ADMINISTER 80 UNITS UNDER THE SKIN IN THE MORNING 30 mL 5 03/24/20 25 Active Additional Information Patient taking differently: 60 Units, ADMINISTER 80 UNITS UNDER THE SKIN IN THE MORNING, Reported on 06/21/2025 ketoconazole 2 % creamIndications :Tinea pedis, unspecified laterality Apply topically daily. 60 g 1 06/13/20 25 Active liraglutide (VICTOZA) 0.6 mg/0.1 mL (18 mg/3 mL) PnIj Inject 1.8 mg under the skin daily. 27 mL 3 07/17/20 25 Active BD NINI 2ND GEN PEN NEEDLE 32 gauge x 5/32 NdleIndications: Type 2 diabetes mellitus with peripheral neuropathy Inject 1 each as directed 2 (two) times a day. 200 each 3 07/17/20 25 Active BD NINI 2ND GEN PEN NEEDLE 32 gauge x 5/32 NdleIndications: Type 2 diabetes mellitus with peripheral neuropathy Inject 1 each as directed 2 (two) times a day. 200 each 3 10/28/20 24 025 Discontin ued(Reord er) liraglutide (VICTOZA) 0.6 mg/0.1 mL (18 mg/3 mL) PnIj Inject 1.8 mg under the skin daily. 27 mL 1 03/06/20 25 025 Discontin ued(Reord er) Active Problems Problem Noted Date Diagnosed Date Low testosterone 11/21/2024 Assessment & Plan (02/21/2025 10:00 AM EDT): He is taking his testosterone gel packets at night between 7-8 pm after his shower before work. He is taking it most nights- has been better about not missing doses. Will order labs to determine if dosing adjustments are needed Assessment & Plan (11/21/2024 10:08 AM EST): Patient reports low testosterone level in the 120 range tested by his urologist Dr. Mejía in October. Lab results were not available, done at [facility]. Patient is not sure why he would have a low testosterone. He is status post prostate surgery for BPH,, no history of prostate cancer. He was recommended to start testosterone gel but he has not started yet because of worry about prostate cancer and worsening sleep apnea. -Suggested to recheck testosterone with LH and FSH. 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 If low testosterone with inappropriately normal or low LH and FSH would recommend to image the pituitary with an MRI. 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 07/29/2024 Assessment & Plan (02/21/2025 9:58 AM EDT): Will maintain his insulin dosing Assessment & Plan (07/29/2024 9:44 AM EDT): Will maintain his insulin dosing penitentiary current use of oral hypoglycemic drug 07/29/2024 Assessment & Plan (02/21/2025 9:58 AM EDT): Will maintain his metformin and glipizide dosing Assessment & Plan (07/29/2024 9:45 AM EDT): Will maintain his metformin and glipizide dosing Long-term (current) use of i njectable non-insulin antidiabetic drugs 07/29/2024 Assessment & Plan (02/21/2025 9:58 AM EDT): Will maintain his victoza dosing Assessment & Plan (07/29/2024 9:45 AM EDT): Will maintain his victoza dosing Type 2 diabetes mellitus with peripheral neuropa thy 02/27/2023 Assessment & Plan (02/21/2025 10:01 AM EDT): Control is reasonable based upon the patient's SMBG readings. No frequent or severe hypoglycemia. His glucose levels continue to be better. Will maintain his regimen. Continue to work on eating healthy and being active. To call or message with any issues managing his glucose levels. Up to date with [facility]. Sees podiatry. Labs ordered Assessment & Plan (07/29/2024 9:50 AM EDT): Control has improved based upon the patient's SMBG readings. No frequent or severe hypoglycemia. His glucose levels continue to be better. Congratulated him on his efforts to improve his glucose control and encouraged him to keep it up. Will maintain his regimen. Continue to work on eating healthy and being active. To call or message with any issues managing his glucose levels. Up to date with [facility]. Labs were done with PCP, will call to get results. Assessment & Plan (03/02/2024 10:43 AM EDT): Control has improved based upon the patient's SMBG readings. No frequent or severe hypoglycemia. Since the increase in his insulin and he is trying to improve his diet his glucose control is much better. Congratulated him on his efforts and encouraged him to keep it up. Will maintain his regimen. Continue to work on eating healthy and being active. To call or message with any issues managing his glucose levels. Up to date with [email or web address]. Labs ordered Assessment & Plan (10/26/2023 10:09 AM EST): Control is poor based upon the patient's SMBG readings. No frequent or severe hypoglycemia. He had been sober for months until his 's recent passing. Stressed the importance of not drinking to deal with his grief and instead to focus on trying to increase his exercise. He likes the idea of going back to gym to help with his grieving and states will stop drinking again. As now he doesn't feel good when drinking that much. Continue to work on eating healthy and trying to be active. To call or message with any issues managing his glucose levels. Up to date with [employer]. Labs ordered today Assessment & Plan (02/27/2023 3:30 PM EDT): Control is improving based upon the patient's SMBG readings. No frequent or severe hypoglycemia. He is doing better about making better dietary choices and has noticed this is making his glucose levels better. Congratulated him on his efforts, encouraged him to keep it up. Will maintain his regimen. Continue to work on eating healthy and being active. To call with any issues managing his glucose levels. Up to date with [employer]. Sees podiatry. Labs ordered today Type 2 diabetes mellitus wit h hyperglycemia, with long-term current use of insulin 02/27/2023 Assessment & Plan (06/21/2025 9:07 AM EDT): Improved but suboptimal control by recent SMBG. Last A1c improved to 8.2% in 02/2025. Patient appropriately decreased his Tresiba from 80 units to 60 units before going to bed because of frequent hypoglycemia. He is taking all his medicines including Victoza, glipizide and metformin as well as Tresiba before going to bed in the morning consistently. He kept 9 pounds down since November. He remains sedentary. -Reviewed symptoms, prevention and treatment of hypoglycemia. Patient continue to decrease his Tresiba if blood sugars during sleep or after waking up are below the 70s -Congratulated on him stopping drinking alcohol -Continue to work on carbohydrate controlled meal plan -Encouraged to try to increase physical activity as tolerated -Labs today -Follow-up with Melissa on 09/26/2025 and with me in 12/2025 Assessment & Plan (11/21/2024 10:06 AM EST): Improved control within last year. Last A1c 8.1% in 07/2024. Recent blood sugars are in the 120-240 range. Patient stopped drinking beer in 08/2024. Remains sedentary. Weight is stable. No frequent or severe hypoglycemia -Continue current treatment including Victoza 1.8 mg daily, Tresiba 80 units in the morning, 20 mg glipizide XL and 2000 mg metformin XR daily. -Continue to work on losing weight -Cut down on ice cream and milkshakes -Increase physical activity -Labs today -Call with blood sugar problems Assessment & Plan (05/08/2024 7:00 PM EDT): Control has improved somewhat with increasing his Tresiba dose, currently taking 80 units in the morning. He remains on Victoza 1.8 mg in the morning and metformin 2000 mg in the morning. He gained 5 pounds since February. He cut back on his beer intake. He remains sedentary. Rare symptoms of low blood sugar but he tends to overtreat. We reviewed the symptoms, prevention and treatment of hypoglycemia. If having more frequent blood sugars below the 70s, he would start cutting back on the Tresiba by 2 to 4 units. Encouraged to continue to work on healthy meal plan and increase his activity level as tolerated. He is planning to go back to the [facility]. Blood pressure is well-controlled on higher dose of losartan, Rx by PCP. LDL at target of 94 in 02/2024. Urine microalbumin/creatinine ratio is elevated at 42 in 02/2024-patient on losartan. He is complaining of urinary incontinence and for that reason not a good candidate for an SGLT2 inhibitor. Encouraged to call if blood sugars below 70 or over 250 repeatedly. Assessment & Plan (02/04/2024 10:59 AM EDT): Poor control by recent SMBG with blood sugars in the 200s fasting and 300s during the day despite patient reporting more physical activity at work. He feels depressed and has been drinking beer daily since in September. He has been taking 60 units of Tresiba and 1.8 mg Victoza in the morning with 2000 mg metformin and 20 mg glipizide was in the morning. No severe or frequent hypoglycemia. Plan to increase Tresiba to 66 units in the morning and continue to increase by 4 units if fasting glucose over 142 to 3 days in a row and no overnight low blood sugars. Continue current Victoza, metformin and glipizide. Continue to work on healthy meal plan and try to increase physical activity on his days off. If blood sugars do not improve during the day, would need to add mealtime insulin. Call if blood sugar below 70 or 250 repeatedly. Consider seeing a therapist. Follow-up with Melissa in 4 to 6 weeks Assessment & Plan (07/17/2023 11:21 AM EDT): Control is improving based upon the patient's SMBG readings. No frequent or severe hypoglycemia. He is not happy with the mounjaro not working and causing him to feel so sick like . He does not want to try this again. He is happy to continue to use the daily victoza and tresiba. Will maintain this regimen. Continue to work on eating healthy and being active. To call or message with any issues managing his glucose levels. Up to date with [employer]. Labs ordered today Assessment & Plan (07/09/2023 9:57 AM EDT): Last A1c higher at 9.2% in 02/2023. Recent blood sugars suggest improvement, ranging between 84-160 while taking higher dose of Tresiba 60 units in a.m. with 20 mg of glipizide and 2000 mg metformin as well as 1.8 mg Victoza in the morning. He stopped drinking beer after Memorial Day. Increased anxiety. Mostly sedentary. Gained 3 pounds. No frequent or severe hypoglycemia. We discussed switching his Victoza to once weekly GLP. He was worried about using Ozempic because of maternal sister having thyroid cancer. We discussed that Victoza and Ozempic are in the same group of medications they both have a black box warning regarding medullary thyroid cancer. I suggested we try switching the Victoza to Mounjaro which may facilitate more weight loss as well. Patient wanted to try. Will start with 2.5 mg weekly and titrating dose gradually. He will remain on the other diabetes medications. Encouraged to continue to work on healthy meal plan and increase exercise to 30 minutes most days. Reviewed symptoms, prevention and treatment of hypoglycemia. Patient to call if blood sugar below 70 or over 250 repeatedly. Encounters Date Type Department Care Team Description 07/17/2025 Refill [facility] [address] [place] [address] [place] [address] Shavon Grey PA-C Medication Refill 06/26/2025 Telephone [facility] [address] [place] [address] Kiarra Fox MD Returned Call / Lab Results 06/21/2025 9:06 AM EDT - 06/21/2025 11:59 PM EDT Hospital Encounter [facility] [address] [place] [address] Kiarra Fox MD Discharge Disposition: Home or Self Care 06/21/2025 8:20 AM EDT Office Visit [facility] [address] [place] [address] Kiarra Fox MD Type 2 diabetes mellitus with peripheral neuropathy (Primary Dx); Type 2 diabetes mellitus with hyperglycemia, with long-term current use of insulin; penitentiary current use of insulin; 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; Long-term (current) use of injectable non-insulin antidiabetic drugs; Low testosterone 06/13/2025 Refill [facility] [address] [place] [address] Shavon Grey PA-C Medication Problem 06/09/2025 Refill [facility] [address] [place] [address] Trent Cat, DO Medication Refill from Last 3 Months Social History Tobacco Use Types Packs/Day Years Used Date Smoking Tobacco: Never Smokeless Tobacco: Never Tobacco Cessation:Counseling Given: Not Answered Alcohol Use Standard Drinks/Week Comments Yes 2 [...] on file Sexual Orientation Not on file Last Filed Vital Signs Vital Sign Reading Time Taken Comments Blood Pressure 126/64 06/21/2025 8:25 AM EDT Pulse 74 06/21/2025 8:25 AM EDT Temperature 36.3 C (97.3 F) 03/02/2024 10:03 AM EDT Respiratory Rate 18 06/15/2023 12:46 PM EDT Oxygen Saturation 99% 06/21/2025 8:25 AM EDT Inhaled Oxygen Concentration - - Weight 129 kg (284 lb 6.4 oz) 06/21/2025 8:25 AM EDT Height 180.3 cm (5' 10.98 ) 06/21/2025 8:25 AM E DT Body Mass Index 39.68 06/21/2025 8:25 AM EDT Plan of Treatment Upcoming Encounters Date Type Department Care Team (Late st Contact Info) Description 09/26/2025 9:40 AM EST Office Visit [facility] [address] [place] [address] [place] [address] Shavon Grey PA-C [address] [place] [phone] 01/02/2026 8:20 AM EST Office Visit [facility] [address] [place] [address] [place] [address] Kiarra Fox MD [address] [place] [phone] Health Maintenance Due Date Last Done Comments Adult Td,Tdap Booster 1950 DEPRESSION SCREENING 1963 HEPATITIS C SCREENING 1969 PNEUMOCOCCAL VACCINES (50+ years) (1 of 2 - PCV) 1970 COLOGUARD 1996 COLONOSCOPY 1996 COLORECTAL CANCER SCREENING 1996 FIT TEST 1996 FOBT 1996 SIGMOIDOSCOPY 1996 VIRTUAL COLONOSCOPY 1996 ZOSTER VACCINES (1 of 2) 2001 RSV VACCINE (1 - Risk 60-74 years 1-dose series) 2011 DIABETIC EYE EXAM 02/27/2023 INFLUENZA VACCINE (#1) 2025 COVID-19 VACCINE ( - 2024) 07/10/2025 BLOOD PRESSURE 12/22/2025 06/21/2025 HEMOGLOBIN A1C 12/22/2025 06/21/2025, 02/07, 11/21/2024, Additional history exists CREATININE LEVEL 06/21/2026 06/21/2025, , 12/08/2024, Additional history exists POTASSIUM LEVEL 06/21/2026 06/21/2025, 02/07, 11/21/2024, Additional history exists SMOKING STATUS SCREENING (Once After 26 Yrs) Completed 06/21/2025 HEPATITIS A VACCINES Aged Out No long er eligible based on patient's age to complete this topic HIB VACCINES Aged Out No longer eligi ble based on patient's age to complete this topic MENINGOCOCCAL VACCINES (ACWY) Aged Out No longer eligible based on patient's age to complete this topic MENINGOCOCCAL VACCINES (B) Aged Out N o longer eligible based on patient's age to complete this topic Medical Devices Not on file Procedures Procedure Name Priority Date/Time Associated Diagnosis Comments COMPREHENSIVE METABOLIC PANEL Routine 06/21/2025 9:12 AM EDT Type 2 diabetes mellitus with peripheral neuropathy HEMOGLOBIN A1C Routine 06/21/2025 9:12 AM EDT Type 2 diabetes mellitus with peripheral neuropathy CBC Routine 06/21/2025 9:12 AM EDT Type 2 diabetes mellitus with peripheral neuropathy from Last 3 Months Results * (ABNORMAL) Comprehensive metabolic panel (06/21/2025 9:12 AM EDT) SODIUM 135 133 - 146 mmol/L [facility] POTASSIUM 4.7 3.3 - 5.1 mmol/L [facility] CHLORIDE 99 96 - 108 mmol/L [facility] CO2 23 21 - 35 mmol/L [facility] BUN 26(H) 6 - 19 mg/dL [facility] CREATININE 1.10 0.5 - 1.5 mg/dL [facility] GLUCOSE 239(H) 70 - 99 mg/dL [facility] ALBUMIN 3.9 3.9 - 4.8 g/dL [facility] TOTAL PROTEIN 7.4 6.5 - 8.0 g/dL [facility] CALCIUM 9.2 8.4 - 10.3 mg/dL [facility] ALKALINE PHOSPHATASE 72 39 - 117 U/L [facility] TOTAL BILIRUBIN 0.4 0.0 - 1.2 mg/dL [facility] AST 23 0 - 37 U/L [facility] ALT 18 0 - 40 U/L [facility] GLOBULIN 3.5 1 - 4.8 g/dL [facility] EGFR 71 >59 mL/min/1.7 3m2 [facility] Comment:Estimated glomerular filtration rate calculated using the CKD-EPI refit equation. ANION GAP 18 10 - 20 mmol/L [facility] Blood 06/21/2025 9:12 AM EDT 06/21/2025 9:16 AM EDT us Kiarra Fox MD LAB BLOOD ORDERABLES Final Res ult Performing Organization Address City/State/[facility] Co de Phone Number [address] [phone] * (ABNORMAL) CBC (06/21/2025 9:12 AM EDT) WBC 8.85 4.00 - 11.00 K/uL [facility] RBC 4.27(L) 4.50 - 5.90 M/uL [facility] HGB 12.5(L) 13.5 - 17.5 g/dL [facility] HCT 36.6(L) 41.0 - 53.0 % [facility] PLT 234 150 - 450 K/uL [facility] MCV 85.7 80.0 - 100.0 fL [facility] MCH 29.3 27.0 - 31.0 pg [facility] MCHC 34.2 32.0 - 36.0 g/dL [facility] RDW 13.1 11.5 - 14.5 % [facility] MPV 9.8 8.4 - 12.0 [facility] NRBC 0.00 0.00 /100 WBCs [facility] ABSOLUTE NRBC 0.00 0.00 K/uL [facility] Blood 06/21/2025 9:12 AM EDT 06/21/2025 9:16 AM EDT us Kiarra Fox MD LAB BLOOD ORDERABLES Final Res ult Performing Organization Address City/[facility]/ZIP Co de Phone Number [address] [phone] * (ABNORMAL) Hemoglobin A1c (06/21/2025 9:12 AM EDT) HEMOGLOBIN A1C 7.4(H) 4.3 - 5.8 % [facility] Blood 06/21/2025 9:12 AM EDT 06/21/2025 9:16 AM EDT us Kiarra Fox MD LAB BLOOD ORDERABLES Final Res ult Performing Organization Address City/[facility]/ZIP Co de Phone Number [address] [phone] from Last 3 Months Insurance [employer] [facility] [employer] [facility] [place] [address] [place] [address] [place] [address] [facility] [employer] Care Teams Pharmacy Technician Assistant Relationship Specialty Start Date End Date Shana Chacon MD [address] [place] [address] [address] [place] [address] PCP - General Internal Medicine 02/27/23 Additional Source Comments The information contained in this document represents components of the legal health record. It is not the complete legal health record.[facility]
[2025-07-19 12:13] LABS: Prostate Specific Antigen 4.25 ng/mL (<0.05-4.0)
== END 2025-07-19 09:37 | disposition home or self-care (01) ==
LOC: HO.10HDL 09:36
PROVIDERS: Visit Provider Urology
DX: Z12.5 Encounter for screening for malignant neoplasm of prostate (principal); E29.1 Testicular hypofunction
CPT/HCPCS: 36415; 84153; 84403; 85027

== ENCOUNTER 2025-08-02 10:27 | Outpatient (AMB) | payer BC, SELFPAY ==
--- NOTE | 2025-08-02 10:32 | A.OFFVIS_ITS ---
Intake Visit Reasons: 6month follow up/ labs Intake Note: Patient is present for 6M/LABS Urology Medication:FESOTERODINE,,TESTOSTERONE Antibiotic Allergy:SULFA Blood Thinner:NONE Labs done : 07/19/25 PSA 4.25, Total Testosterone 342 Medical Practice Assistant Required: No Accompanied by: Self / Same As Patient Allergies ibuprofen (IBUPROFEN) Allergy (Intermediate, Verified 08/02/25 10:33) kidney problems lisinopril (LISINOPRIL) Allergy (Intermediate, Verified 08/02/25 10:33) kidney problems Sulfa (Sulfonamide Antibiotics) Allergy (Unknown, Verified 08/02/25 10:33) Unknown HPI Comments Details: Steven is a pleasant male. He is a patient of Dr. Mcdowell. He is seen for the following urologic conditions - lower urinary tract symptoms - overactive bladder - bladder instability - hypogonadism Hypogonadism on last testosterone lab Background diabetes Continue with topical testosterone replacement for next six-month Does have feeling of improved while being Refilled medication Hypogonadism Testosterone - 11/01 127, 01/03 323, 08/03 342 PSA 4.3 Lower Urinary Tract Symptoms: Current visit is for further evaluation of, lower urinary tract symptoms, predominate irritative symptoms. Current treatment includes fluid restriction, combination Myrbetriq with Toviaz Prostate procedures - 06/29 GreenLight laser prostate Prior treatments include medication, flomax/tamsulosin, not tolerated due to side effects Prostate Symptom Score Severe (20+), Bother 3. Symptoms include nocturia (>2), frequency, urgency, weak stream, and are progressing. 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 Are you a primary intensive care nurse to a significant other at home: Yes Do you presently have visiting nurse or other home services: Yes (mother's care-marble worker) Alcohol intake: current Alcohol intake frequency: a few times a week Alcohol type: beer Patient Tobacco Use Status: Never used Tobacco Review of Systems Const Denies chills and Denies fever(s) Card Reports no additional complaints and Denies syncope Resp Denies cough GI Denies abdominal pain and Denies heartburn Reports as per HPI and Denies change in libido Neuro Denies syncope Psych Denies change in libido Endo Denies change in libido Physical Exam Const General: cooperative, healthy appearing, comfortable and no acute distress Orientation/consciousness: patient oriented x3 HEENT Face and sinus: Yes normal facial exam Mouth: moist mucous membranes Neck Neck: Yes normal visual inspection, Yes full ROM and Yes trachea midline Chest Chest palpation & inspection: normal inspection of the chest Resp Effort & Inspection: normal respiratory effort, able to speak in complete sentences and no respiratory distress GI Inspection: Yes normal to inspection Back/Spine/Pelvis Cervical Spine: normal cervical lordosis Thoracic/Lumbar Spine: thoracic and lumbar spine normal to inspection Skin General skin exam: no rashes or lesions noted Neuro General: patient oriented x3, gait normal, tone normal and moves all extremities Extrem General: Yes normal to inspection and Yes capillary refill normal Assessment & Plan Assessment & Plan (1) Low libido: Code(s): R68.82 - Decreased libido Category: Medical (2) Urinary urgency: Code(s): R39.15 - Urgency of urination Category: Medical (3) BPH (benign prostatic hyperplasia): Code(s): N40.0 - Benign prostatic hyperplasia without lower urinary tract symptoms Category: Medical Qualifiers: Lower urinary tract symptom presence: symptoms present Lower urinary tract symptom detail: urinary frequency Qualified Code(s): N40.1 - Benign prostatic hyperplasia with lower urinary tract symptoms; R35.0 - Frequency of micturition Plan Six-month follow-up office labs Orders: Orders Testosterone, Total 5 Months E29.1 - Testicular hypofunction Prostate Specific Antigen 5 Months E29.1 - Testicular hypofunction Hematocrit 5 Months E29.1 - Testicular hypofunction Medications: Refilled testosterone Apply 2 packets to shoulder and rub in until dry each day 2 packets transdermal DAILY 300 grams 5RF 30 days E29.1 - Testicular hypofunction fesoterodine ER (Toviaz) 4 mg PO DAILY 90 tabs 1RF 90 days N39.41 - Urge incontinence, R39.15 - Urgency of urination Patient Instructions: This note is constructed using voice recognition software. While every effort has been made to ensure accuracy racing secretary errors may have been included. Imaging studies, laboratory and physical exam results were discussed and reviewed in detail. No major barriers to patient understanding were identified. An opportunity to ask questions regarding the treatment plan was provided. All questions were answered. The patient expressed understanding and agreement with the above treatment plan. The patient is aware they should contact our office by phone for worsening of their current condition or the appearance of new urologic symptoms. Compliance is encouraged with any medications and followup testing that is ordered. It is a privilege to participate in the urologic care of your patient. If you have any questions or concerns regarding treatment for the above conditions, or other urologic issues, please do not hesitate to contact me. The office telephone contact is [phone]. Sincerely, Dr Aly Painter MD, [facility] - Urology Compassionate Specialist Care for the Genitourinary System Coding Level of Care Code Est Pt Level 3 (32278) Complex EM visit Add On G2211 Diagnoses Low libido R68.82 Urinary urgency R39.15 Benign prostatic hyperplasia with urinary frequency N40.1; R35.0 Lower urinary tract symptom presence: symptoms present Lower urinary tract symptom detail: urinary frequency
--- OUTSIDE RECORDS SUMMARY | 2025-08-02 13:05 | XMS_ITS | Clinical Summary ---
Author Organization [facility] Address [address] [place] [address] Phone Care Team Providers Care Clock Maker Name Role Phone Shana Chacon MD Primary Care Provider [phone] Allergies Active Allergy Reactions Criticality Noted Date [...] Lab results were not available, done at [facility]. 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 Up to date with [facility]. Labs ordered Assessment & Plan (10/26/2023 10:09 [...] is planning to go back to the [facility]. 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); Type 2 diabetes mellitus with hyperglycemia, with long-term current use of insulin; prison current use of insulin; terminal supervisor current use of oral hypoglycemic drug; Long-term (current) use of injectable non-insulin antidiabetic drugs; Low testosterone 06/13/2025 Refill [facility] [address] [place] [address] Shavon Grey PA-C Medication Problem 06/09/2025 Refill [facility] [address] [place] [address] Trent Cat, DO Medication Refill from Last 3 Months Social History Tobacco Use Types Packs/Day Years Used Date Smoking Tobacco: Never Smokeless Tobacco: Never Tobacco Cessation:Counseling Given: Not Answered Alcohol Use Standard Drinks/Week Comments Yes 2 (1 standard drink = 0.6 oz pur e alcohol) Education Answer Date Recorded Are you interested in more education? Not on teir e 03/07/2023 Are you concerned about learning? [...] 9:40 AM EST Office Visit [facility] [address] [place] [address] [place] [address] Shavon Grey PA-C [address] [place] [address] 01/02/2026 8:20 AM EST Office Visit [facility] [address] [place] [address] [place] [address] Kiarra Fox MD [address] [place] [address] Health Maintenance Due Date Last Done Comments [...] EDT) SODIUM 135 133 - 146 mmol/L [facility] POTASSIUM 4.7 3.3 - 5.1 mmol/L [facility] CHLORIDE 99 96 - 108 mmol/L [facility] CO2 23 21 - 35 mmol/L [facility] BUN 26(H) 6 - 19 mg/dL [facility] CREATININE 1.10 0.5 - 1.5 mg/dL [facility] GLUCOSE 239(H) 70 - 99 mg/dL [facility] ALBUMIN 3.9 3.9 - 4.8 g/dL [facility] TOTAL PROTEIN 7.4 6.5 - 8.0 g/dL [facility] CALCIUM 9.2 8.4 - 10.3 mg/dL [facility] ALKALINE PHOSPHATASE 72 39 - 117 U/L [facility] TOTAL BILIRUBIN 0.4 0.0 - 1.2 mg/dL [facility] AST 23 0 - 37 U/L [facility] ALT 18 0 - 40 U/L [facility] GLOBULIN 3.5 1 - 4.8 g/dL [facility] EGFR 71 >59 mL/min/1.7 3m2 [facility] Comment:Estimated glomerular filtration rate calculated using the CKD-EPI refit equation. ANION GAP 18 10 - 20 mmol/L [facility] Blood 06/21/2025 9:12 AM EDT 06/21/2025 9:16 AM EDT us Kiarra Fox MD LAB BLOOD ORDERABLES Final Res ult Performing Organization Address City/State/[facility] Co de Phone Number [address] [address] * (ABNORMAL) CBC (06/21/2025 9:12 AM EDT) WBC 8.85 4.00 - 11.00 K/uL [facility] RBC 4.27(L) 4.50 - 5.90 M/uL [facility] HGB 12.5(L) 13.5 - 17.5 g/dL [facility] HCT 36.6(L) 41.0 - 53.0 % [facility] PLT 234 150 - 450 K/uL [facility] MCV 85.7 80.0 - 100.0 fL [facility] MCH 29.3 27.0 - 31.0 pg [facility] MCHC 34.2 32.0 - 36.0 g/dL [facility] RDW 13.1 11.5 - 14.5 % [facility] MPV 9.8 8.4 - 12.0 [facility] NRBC 0.00 0.00 /100 WBCs [facility] ABSOLUTE NRBC 0.00 0.00 K/uL [facility] Blood 06/21/2025 9:12 AM EDT 06/21/2025 9:16 AM EDT us Kiarra Fox MD LAB BLOOD ORDERABLES Final Res ult Performing Organization Address City/[facility]/ZIP Co de Phone Number [address] [address] * (ABNORMAL) Hemoglobin A1c (06/21/2025 9:12 AM EDT) HEMOGLOBIN A1C 7.4(H) 4.3 - 5.8 % [facility] Blood 06/21/2025 9:12 AM EDT 06/21/2025 9:16 AM EDT us Kiarra Fox MD LAB BLOOD ORDERABLES Final Res ult Performing Organization Address City/[facility]/ZIP Co de Phone Number [address] [address] from Last 3 Months Insurance [employer] [facility] [employer] [facility] [place] [address] [place] [address] [place] [address] [facility] [employer] Care Teams Clock Maker Relationship Specialty Start Date End Date Shana Chacon MD [address] [place] [address] 2 [place] [address] PCP - General Internal Medicine 02/27/23 Additional Source Comments The information contained in this document represents components of the legal health record. It is not the complete legal health record.[facility]
--- OUTSIDE RECORDS SUMMARY | 2025-08-02 13:06 | XMS_ITS | Patient Health Record ---
Author Organization [facility] Address [address] [place] [address] Care Team Providers Care Cake Tester Name Role Phone Shana Chacon MD Primary Care Provider Sonido Nielson Unavailable [phone] Allergies Allergen (clinical drug ingredient) Drug/Non Drug [...] Problem Acquired hammer toe of right foot (9512188787589244 ) Other hammer toe(s) (acquired), right foot (M20.41) Active confirmed Response to treatment, Improvemen t Problem Acquired hammer toe of left foot ([id number] ) Other hammer toe(s) (acquired), left foot (M20.42) Active confirmed Response to treatment, Improvemen t Problem Polyneuropathy due to type 2 diabetes mellitus (086343287) Type 2 diabetes mellitus with diabetic polyneuropathy (E11.42) Active confirmed Vital Signs Blood pressure diastolic 65 mm Hg 06/16/2025 Height 5ft 11in in 06/16/2025 Blood pressure systolic 130 mm Hg 06/16/2025 Weight 291 lbs 06/16/2025 BMI 40.58 kg/m2 06/16/2025 Procedures Procedure Date Ordered Date Performed Result Body Sit e 81781-XTYIHXY NAIL, 6 OR MORE 09/16/2024 N/A 33587-Gdqhayqc Plate 09/16/2024 N/A 68007-Yhmpjymm Plate Each Additional 09/16/2024 N/A 04179-IGGM SKIN LESIONS, OVER 4 09/16/2024 N/A 06991-LSMKTIU NAIL, 6 OR MORE 12/16/2024 N/A 34065-Aabwbvkc Plate 12/16/2024 N/A 37092-Snuklwwu Plate Each Additional 12/16/2024 N/A 97757-DKIF SKIN LESIONS, OVER 4 12/16/2024 N/A 84067-DEXZKPK NAIL, 6 OR MORE 03/14/2025 N/A 66548-Caykenbv Plate 03/14/2025 N/A 09006-Ubfzhxde Plate Each Additional 03/14/2025 N/A 58411-MAEH SKIN LESIONS, OVER 4 03/14/2025 N/A 37998-UFUIJWW NAIL, 6 OR MORE 06/16/2025 N/A 08235-Ygobofdt Plate 06/16/2025 N/A 21346-Fjtequka Plate Each Additional 06/16/2025 N/A 26373-IDFA SKIN LESIONS, OVER 4 06/16/2025 N/A Encounters Encounter Location Date Provider Diagnosis [address] [address] 09/16/2024 Sonido Walter Type 2 diabetes mellitus with diabetic polyneuropathy E11.42 ; Tinea unguium B35.1 ; Ingrown nail L60.0 ; Other hammer toe(s) (acquired), right foot M20.41 and Other hammer toe(s) (acquired), left foot M20.[address] [address] 12/16/2024 Sonido Walter Type 2 diabetes mellitus with diabetic polyneuropathy E11.42 ; Tinea unguium B35.1 and Ingrown nail L60.[address] [address] 03/14/2025 Sonidoadam Walter Type 2 diabetes mellitus with diabetic polyneuropathy E11.42 ; Tinea unguium B35.1 and Ingrown nail L60.[address] [address] 06/16/2025 Sonido Walter Type 2 diabetes mellitus [...] Treatment Pending Test Test Name Order Date 77244-CFPDPQE NAIL, 6 OR MORE 08/31/2017 14555-WOGVSGC NAIL, 6 OR MORE 11/16/2017 24449-VKXVNII NAIL, 6 OR MORE 02/08/2018 24328-ZBMBVNC NAIL, 6 OR MORE 05/10/2018 80903-GUSHFMS NAIL, 6 OR MORE 08/09/2018 21273-GIRRFJP NAIL, 6 OR MORE 11/18/2018 97822-PAPHPYQ NAIL, 6 OR MORE 01/27/2019 98727-AVPTGEO NAIL, 6 OR MORE 04/14/2019 80895-CSAOOLN NAIL, 6 OR MORE 06/22/2019 76526-QBGFMBQ NAIL, 6 OR MORE 09/01/2019 87041-FEXGGJM NAIL, 6 OR MORE 11/14/2019 85419-EWNESVR NAIL, 6 OR MORE 01/25/2020 48769-QCHCFPH NAIL, 6 OR MORE 04/05/2020 89767-FCCYYKR NAIL, 6 OR MORE 06/14/2020 49807-QPLKZYG NAIL, 6 OR MORE 09/15/2020 75804-SUCPWNC NAIL, 6 OR MORE 11/29/2020 58653-XPJFJZG NAIL, 6 OR MORE 02/07/2021 39331-SIQCXDE NAIL, 6 OR MORE 04/25/2021 78649-VXNYKZQ NAIL, 6 OR MORE 07/17/2021 98594-BTWCRMN NAIL, 6 OR MORE 09/19/2021 03928-OKXDGMI NAIL, 6 OR MORE 12/25/2021 53107-IQAWCIF NAIL, 6 OR MORE 03/06/2022 11552-TAJYVHR NAIL, 6 OR MORE 06/09/2022 91757-GJOTTRM NAIL, 6 OR MORE 08/28/2022 49236-MLBYXSX NAIL, 6 OR MORE 11/19/2022 95276-PRBFUPA NAIL, 6 OR MORE 01/28/2023 67099-VWFMHCP NAIL, 6 OR MORE 04/15/2023 16598-EFMCRSK NAIL, 6 OR MORE 2023 10639-GDUUQRX NAIL, 6 OR MORE 09/17/2023 83671-DDWFDZQ NAIL, 6 OR MORE 11/25/2023 49420-FOUOUQW NAIL, 6 OR MORE 02/04/2024 02245-ABAEOFF NAIL, 6 OR MORE 04/14/2024 12721-YBYPZMI NAIL, 6 OR MORE 06/23/2024 99081-XQVRMCX NAIL, 6 OR MORE 09/16/2024 97742-SNILMLN NAIL, 6 OR MORE 12/16/2024 66062-YYFKPQT NAIL, 6 OR MORE 03/14/2025 65151-QATTZRU NAIL, 6 OR MORE 06/16/2025 00840-Xfghynqt Plate 09/01/2019 48119-Qrplakae Plate 03/14/2025 31103-Umlhgflr Plate 12/16/2024 53445-Jioesgjv Plate 09/16/2024 01721-Hdpebkxy Plate 06/23/2024 58751-Darsngon Plate 04/14/2024 41202-Bcdydbto Plate 02/04/2024 09316-Daafhmnb Plate 11/25/2023 02747-Ohmvmemy Plate 09/17/2023 11054-Xfddkvcg Plate 2023 38821-Dsmlmjmr Plate 04/15/2023 13326-Nfajtbil Plate 01/28/2023 34475-Vhnuamxg Plate 11/19/2022 16755-Ehydoawl Plate 08/28/2022 20051-Dgpzaled Plate 06/09/2022 24477-Epewcnrs Plate 03/06/2022 42893-Lowysqxo Plate 12/25/2021 48834-Mxxykuzz Plate 09/19/2021 77526-Mvthpost Plate 07/17/2021 61318-Vcmanqpm Plate 04/25/2021 09490-Mpwxcdap Plate 02/07/2021 99468-Wtgisqqo Plate 11/29/2020 08850-Ivfpwzmc Plate 09/15/2020 09200-Hcawpmpx Plate 06/14/2020 22686-Xsjkppcd Plate 04/05/2020 84123-Kzjjaxbs Plate 01/25/2020 27467-Vjysyvuo Plate 11/14/2019 44834-Edqoooof Plate 06/22/2019 55515-Nrthytdd Plate 01/27/2019 99624-Ijkueuaq Plate 08/31/2017 80843-Lksoizyb Plate 11/18/2018 05977-Vteoenjr Plate 08/09/2018 14562-Kjuahzop Plate 05/10/2018 48596-Biuwwkzr Plate 02/08/2018 30608-Scavkwjw Plate 11/16/2017 60591-Gnqxcyjj Plate 06/16/2025 31976-Zabpdmuo Plate 04/14/2019 74459-Sldnvxuj Plate Each Additional 06/2025 89075-Ruaryhcd Plate Each Additional 08/2019 02903-Bmrtxmqo Plate Each Additional 68007-Hqmhydws Plate Each Additional 04/2019 15110-Rruihyax Plate Each Additional 87988-Aunuxvuk Plate Each Additional 04/2020 52715-Yvdacayi Plate Each Additional 61826-Aqdaibhc Plate Each Additional 16322-Shvhhnkg Plate Each Additional 04/2020 38969-Gtqxdkww Plate Each Additional 05/2020 91699-Wtggbbln Plate Each Additional 56796-Sizoyzlq Plate Each Additional 11/2020 14189-Vrwnnowy Plate Each Additional 24512-Vcrwyvjc Plate Each Additional 06/2021 18681-Mqooqnzw Plate Each Additional 09/2021 01811-Xjowuqwk Plate Each Additional 70769-Hesiryvw Plate Each Additional 30035-Knriwhtj Plate Each Additional 11/2021 95715-Pgakauyc Plate Each Additional 95290-Ayuwduby Plate Each Additional 09/2023 95296-Gawxzvuo Plate Each Additional 69996-Kouhgpkn Plate Each Additional 05/2023 64361-Cnwknjqp Plate Each Additional 52562-Pfljtner Plate Each Additional 07/2023 70971-Oauwnjmf Plate Each Additional 71862-Yvvmubay Plate Each Additional 20525-Yvwsarom Plate Each Additional 04/2024 05475-Qbzboiib Plate Each Additional 93818-Fyndpvnn Plate Each Additional 06/2024 29510-Vlajbqlg Plate Each Additional 05/2025 88115-Lhxtwhlg Plate Each Additional 04/2025 51358-Xpaonkmk Plate Each Additional 67031-ATVJ SKIN LESIONS, OVER 4 06/16/20 25 45225-RKIB SKIN LESIONS, OVER 4 03/14/20 41231-EMWI SKIN LESIONS, OVER 4 12/16/19 25 08014-EFOG SKIN LESIONS, OVER 4 09/16/20 24 40043-YPEJ SKIN LESIONS, OVER 4 06/23/20 24 86372-SAXH SKIN LESIONS, OVER 4 04/14/20 24 28496-SDXE SKIN LESIONS, OVER 4 02/04/20 24 19027-SEQM SKIN LESIONS, OVER 4 11/25/19 24 89771-CMSW SKIN LESIONS, OVER 4 09/17/20 23 25168-APMZ SKIN LESIONS, OVER 4 07/01/20 23 41113-UUYN SKIN LESIONS, OVER 4 04/15/20 23 20391-NEKD SKIN LESIONS, OVER 4 01/29/20 23 72973-AHGD SKIN LESIONS, OVER 4 11/19/19 11824-PWWU SKIN LESIONS, OVER 4 08/28/20 60539-TEOF SKIN LESIONS, OVER 4 06/09/20 82997-MRXV SKIN LESIONS, OVER 4 03/06/20 97712-GMZC SKIN LESIONS, OVER 4 12/25/19 31695-PKJO SKIN LESIONS, OVER 4 09/19/20 66712-MMEH SKIN LESIONS, OVER 4 07/17/20 84010-MDZN SKIN LESIONS, OVER 4 04/25/20 90588-YACR SKIN LESIONS, OVER 4 02/08/20 71240-VKLE SKIN LESIONS, OVER 4 11/29/19 18960-WHWM SKIN LESIONS, 2 TO 4 09/15/20 43365-UZAA SKIN LESIONS, 2 TO 4 06/14/20 71585-VROY SKIN LESIONS, 2 TO 4 04/05/20 93424-DKWK SKIN LESIONS, 2 TO 4 01/25/20 39037-HISL SKIN LESIONS, 2 TO 4 11/14/19 75662-MMWP SKIN LESIONS, 2 TO 4 09/01/20 Next Appt Details Provider Name:Sonido Walter , 10/03/2025 09:00:00 AM, [address] [place] [address], [phone], Insurance Providers Payer Name Payer Address Payer Phone Subscriber Number Group Number Insured Name Patient Relationship to Insured Coverage Start Date Coverage End Date [facility] [id number] [place] [address] [phone] [id number] Steven Lockhart Self - patient is the [...]
== END 2025-08-02 11:05 | disposition home or self-care (01) ==
LOC: HO.HUSH 10:27
PROVIDERS: PCP Internal Medicine; Visit Provider Urology
DX: N40.1 Benign prostatic hyperplasia with lower urinary tract symptoms (principal); R68.82 Decreased libido; R39.15 Urgency of urination; R35.0 Frequency of micturition
CPT/HCPCS: 99213